=== PATIENT | male | born 1945 | race Caucasian/White ===

== ENCOUNTER 2019-05-07 10:36 | Inpatient (IN) | payer MEDICARE, OTHER ==
[2019-05-07] VITALS (15 sets, daily range): BP systolic 98–151; BP diastolic 32–90
[~2019-05-07] VITALS: Ht 175.3 cm; Wt 81.6 kg
--- NOTE | 2019-05-07 10:36 | NUR ---
"BIB RA 88 FROM HOME, C/O ABDOMINAL PAIN/NAUSEA AND VOMITING X 3 DAYS" pt aaox4, -sob, nad noted, vss ,pending md fuentes
[2019-05-07] MEDS ORDERED: DILTIAZEM HCL 25 MG IV ONE (11:20)
[2019-05-07 11:22] LABS: BASOPHILS # (AUTO) 0.1 /CMM (0.0-0.2); BASOPHILS % (AUTO) 0.8 % (0.0-2.0); EOSINOPHILS % (AUTO) 1.2 % (0.0-6.0); HEMATOCRIT 45 % (39-51); HEMOGLOBIN 14.4 g/dL (13.5-17.5); LYMPHOCYTES # (AUTO) 2.2 /CMM (0.8-4.8); LYMPHOCYTES % (AUTO) 22.5 % (20.0-44.0); MEAN CORPUSCULAR HGB CONC 32 g/dl (31.0-36.0); MEAN CORPUSCULAR VOLUME 82 fL (80-96); MONOCYTES # (AUTO) 0.8 /CMM (0.1-1.30); MONOCYTES % (AUTO) 7.9 % (2.0-12.0); NEUTROPHILS # (AUTO) 6.6 /CMM (1.8-8.9); NEUTROPHILS % (AUTO) 67.6 % (43.0-81.0); PLATELET COUNT (AUTO) 286 /CMM (150-450); RED BLOOD CELL COUNT(AUTO) 5.45 MIL/uL (4.5-6.0); WHITE BLOOD COUNT (AUTO) 9.8 K/uL (4.3-11.0)
--- NOTE | 2019-05-07 11:27 | NUR ---
asked for icu bed
--- NOTE | 2019-05-07 11:29 | NUR ---
[facility] bed 253
--- NOTE | 2019-05-07 11:29 | NUR ---
move sheet turned in
[2019-05-07] MEDS ORDERED: DILTIAZEM HCL IV 125 MG in IV D5W 100 ML IV ONE (11:30)
[2019-05-07] MEDS ORDERED: IV NS 0.9% 500 ML BAG IV ONE (11:30)
[2019-05-07] MEDS ORDERED: DILTIAZEM HCL 25 MG IV IVP ONE (11:30)
[2019-05-07 11:37] LABS: ALBUMIN 3.3 g/dL (3.4-5.0); BILIRUBIN,DIRECT 0.1 mg/dL (0.0-0.2); BILIRUBIN,TOTAL 0.2 mg/dL (0.2-1.0); CALCIUM, SERUM 9.4 mg/dL (8.5-10.1); CREATININE 1.2 mg/dL (0.6-1.3); TOTAL PROTEIN, SERUM 7.6 g/dL (6.4-8.2)
[2019-05-07] MEDS ORDERED: TAMS-12 PO (11:42)
[2019-05-07] MEDS ORDERED: CYAN100096 PO (11:42)
[2019-05-07] MEDS ORDERED: CLON0.5T4 PO (11:42)
[2019-05-07] MEDS ORDERED: PRAV40TA3 PO (11:42)
[2019-05-07] MEDS ORDERED: MELA3TAB63 PO (11:42)
[2019-05-07] MEDS ORDERED: DOCU-141 PO (11:42)
[2019-05-07] MEDS ORDERED: MIRT30TA7 PO (11:42)
[2019-05-07] MEDS ORDERED: BENA40TA8 PO (11:42)
[2019-05-07] MEDS ORDERED: FINA5TAB11 PO (11:42)
[2019-05-07] MEDS ORDERED: LEVO50TA8 PO (11:42)
[2019-05-07] MEDS ORDERED: FOLI0.8T PO (11:42)
[2019-05-07] MEDS ORDERED: TRAZ-182 PO (11:42)
[2019-05-07] MEDS ORDERED: ASPI1CPM PO (11:42)
[2019-05-07] MEDS ORDERED: SENN-168 PO (11:42)
[2019-05-07] MEDS ORDERED: FESO4TAB PO (11:42)
[2019-05-07] MEDS ORDERED: LINA145C PO (11:42)
[2019-05-07] MEDS ORDERED: IV NS 0.9% 250 ML IV ONE ×2 (11:44→11:52)
[2019-05-07] MEDS ORDERED: IOHEXOL-300 100 ML VIAL IV ONE (11:44)
[2019-05-07] MEDS ORDERED: CT SWABBABLE VALVE TRANS SET 1 EA INFUS.SET MC ONE ×2 (11:45→11:52)
--- NOTE | 2019-05-07 11:46 | NUR ---
called cardio its lavern
--- NOTE | 2019-05-07 11:49 | NUR ---
CALLED MICHAEL JACQUES [phone]
[2019-05-07] MEDS ORDERED: IOHEXOL-350 100 ML VIAL IV ONE ×2 (11:52→11:56)
--- NOTE | 2019-05-07 11:57 | NUR ---
MICHAEL SAID ITLL BE ZHOU
[2019-05-07] MEDS ORDERED: METOPROLOL TARTRATE INJ 5 MG/5 ML AMPUL ONE (12:27)
[2019-05-07] MEDS ORDERED: METOPROLOL TARTRATE INJ 5 MG/5 ML AMPUL IVP PRN (12:30)
[2019-05-07] MEDS ORDERED: ENOXAPARIN SODIUM 80 MG/0.8 ML DISP.SYRIN SQ ONE (13:30)
[2019-05-07] MEDS ORDERED: ASPIRIN 81 MG TAB.CHEW PO ONE (13:30)
[2019-05-07] MEDS ORDERED: ASPIRIN 81 MG TAB.CHEW ONE (13:36)
[2019-05-07] MEDS ORDERED: ENOXAPARIN SODIUM 100 MG/ML DISP.SYRIN SQ ONE (13:36)
--- NOTE | 2019-05-07 14:02 | NUR ---
REPORT GIVEN TO PIETRO RN FOR MOISE PT WILL BE TRANSPORTED TO ICU ONCE ALL PAPERS ARE TURNED IN
--- NOTE | 2019-05-07 14:43 | NUR ---
TRANSPORTED TO ICU
--- NOTE | 2019-05-07 15:00 | NUR ---
ICU/RN INITIAL NOTES,AM RECEIVED PT FROM ER. REPORT RECEIVED ASHA PIZARRO RN. PT TRANSFERRED TO BED 253 VIA GURNEY. PT ALERT, AWAKE, FOLLOWS COMMANDS. ON ROOM AIR, NO DISTRESS NOTED. PT DENIES CHEST PAIN. A FIB ON TELE. PT CONTINENT, URINAL AT BEDSIDE. SKIN INTACT. PIV PATENT AND INTACT, NO S/S OF INFECTION OR INFILTRATION NOTED. ALL NEEDS WILL BE ATTENDED TO, SAFETY MEASURES TAKEN, BED IN LOW POSITION, SIDE RAILS UP, CALL LIGHT WITHIN REACH. WILL CONTINUE CARE.
[2019-05-07 16:29] LABS: THYROID STIMULATING HORMONE 1.057 uIU/mL (0.358-3.74)
[2019-05-07] MEDS ORDERED: MAG HYDROX/AL HYDROX/SIMETH 30 ML UDC PO PRN (16:30)
[2019-05-07] MEDS ORDERED: MAGNESIUM HYDROXIDE 30 ML UDC PO PRN (16:30)
[2019-05-07] MEDS ORDERED: Z GUARD REMEDY 2 OZ OINT TP PRN (16:30)
[2019-05-07] MEDS ORDERED: AGGRENOX(ASA/DIPYRIDAMOLE) 1 CAP CPMP.12HR PO SCH (16:30)
[2019-05-07] MEDS ORDERED: ACETAMINOPHEN 325 MG TABLET PO PRN (16:30)
[2019-05-07] MEDS ORDERED: MORPHINE SULFATE INJ 2 MG/ML DISP.SYRIN IV PRN (16:30)
[2019-05-07] MEDS ORDERED: ONDANSETRON HCL/PF 4 MG/2 ML VIAL IVP PRN (16:30)
[2019-05-07] MEDS ORDERED: HYDROCODONE/APAP 5/325MG 1 EACH TABLET PO PRN (16:30)
[2019-05-07] MEDS ORDERED: METOPROLOL SUCCINATE 25 MG TAB.SR.24H PO SCH (18:00)
[2019-05-07] MEDS: CYANOCOBALAMIN 500 MCG TABLET PO SCH (18:30)
[2019-05-07] MEDS: DOCUSATE SODIUM 100 MG CAPSULE PO SCH (18:30)
[2019-05-07] MEDS: TRAZODONE 50 MG TABLET PO PRN (18:31)
--- NOTE | 2019-05-07 18:58 | NUR ---
ICU/RN: ENDING NOTES,AM BESIDE REPORT WILL BE ENDORSED TO NIGHT NURSE FOR MOISE. PT ALERT, AWAKE, FOLLOWS COMMANDS. UNCONTROLLED A.FIB ON TELE. VSS, ON ROOM AIR, NO DISTRESS NOTED. URINAL AT BEDSIDE. PT RESTING COMFORTABLY AT BEDSIDE. ALL NEEDS WILL BE ATTENDED TO, SAFETY MEASURES TAKEN, BED IN LOW POSITION, SIDE RAILS UP, CALL LIGHT WITHIN REACH.
--- NOTE | 2019-05-07 19:25 | NUR ---
RN OPENING NOTES RECEIVED PATIENT IN BED, AWAKE, A/OX4. ABLE TO MAKE NEEDS KNOWN. ON ROOM AIR, BREATHING UNLABORED. NO S/S OF RESP DISTRESS NOTED. PT DENIES ANY PAIN AT THE MOMENT. UNCONTROLLED AFIB ON THE MONITOR HR 100'S. IV SITES LEFT AC 20G AND RIGHT FA 20G, BOTH SITES FLUSHING AND PATENT, BOTH CLEAN, DRY, AND INTACT. URINAL AT BEDSIDE. SAFETY MEASURES IN PLACE; CALL LIGHT WITHIN REACH, SIDE RAILS UP X2, BED LOCKED AND IN LOWEST POSITION. WILL CONTINUE TO MONITOR PATIENT CLOSELY.
--- NOTE | 2019-05-07 20:45 | NUR ---
RN NOTES PATIENT STATED HE WANTS TO SMOKE. DISCUSSED WITH PT RISKS AND BENEFITS AND AGREED TO DO NICOTINE PATCH FOR TONIGHT. HOSPITALIST MADE AWARE AND ORDERED NICOTINE PATCH 21MG. WILL ATTEND TO ORDERS.
--- NOTE | 2019-05-07 21:11 | NUR ---
RN NOTES PATIENT HAS BELONGINGS, INCLUDING WALLET, HOWEVER REFUSING FOR RN TO COUNT DESPITE EXPLANATION OF RISKS AND BENEFITS. WILL CONT TO MONITOR PT.
[2019-05-07] MEDS: NICOTINE PATCH (21MG) 21 MG PATCH.TD24 TD SCH (22:10)
[2019-05-07] MEDS: SENNOSIDES 8.6 MG TABLET PO SCH (22:10)
[2019-05-07] MEDS: ENOXAPARIN SODIUM 80 MG/0.8 ML DISP.SYRIN SQ SCH (22:11)
[2019-05-07] MEDS: clonazePAM 0.5 MG TABLET PO PRN (22:34)
[2019-05-08] VITALS (20 sets, daily range): BP systolic 90–135; BP diastolic 30–90
[2019-05-08 04:38] LABS: BASOPHILS # (AUTO) 0.1 /CMM (0.0-0.2); BASOPHILS % (AUTO) 0.8 % (0.0-2.0); HEMATOCRIT 42 % (39-51); HEMOGLOBIN 13.4 g/dL (13.5-17.5); LYMPHOCYTES # (AUTO) 1.9 /CMM (0.8-4.8); LYMPHOCYTES % (AUTO) 27.4 % (20.0-44.0); MEAN CORPUSCULAR HGB CONC 32 g/dl (31.0-36.0); MEAN CORPUSCULAR VOLUME 82 fL (80-96); MONOCYTES # (AUTO) 0.6 /CMM (0.1-1.30); MONOCYTES % (AUTO) 8.8 % (2.0-12.0); NEUTROPHILS # (AUTO) 4.3 /CMM (1.8-8.9); PLATELET COUNT (AUTO) 267 /CMM (150-450); RED BLOOD CELL COUNT(AUTO) 5.09 MIL/uL (4.5-6.0); WHITE BLOOD COUNT (AUTO) 6.9 K/uL (4.3-11.0)
[2019-05-08 04:59] LABS: CALCIUM, SERUM 8.7 mg/dL (8.5-10.1); CREATININE 1.1 mg/dL (0.6-1.3); MAGNESIUM 2.2 mg/dL (1.8-2.4); PHOSPHORUS 3.4 mg/dL (2.5-4.9); POTASSIUM 4.1 mmol/L (3.5-5.1)
--- NOTE | 2019-05-08 06:48 | NUR ---
RN CLOSING NOTES PATIENT IN BED, AWAKE, WATCHING THE TELEVISION, A/OX4. ON ROOM AIR, BREATHING UNLABORED. NO S/S OF RESP DISTRESS NOTED. SINUS RHYTHM ON THE MONITOR WITH HR 70'S. IV SITES LEFT AC 20G AND RIGHT FA 20G, BOTH SITES FLUSHING AND PATENT, BOTH CLEAN, DRY, AND INTACT. URINAL AT BEDSIDE. SAFETY MEASURES MAINTAINED; CALL LIGHT WITHIN REACH, SIDE RAILS UP X2, BED LOCKED AND IN LOWEST POSITION. ALL NEEDS ANTICIPATED AND MET. ALL MD ORDERS ATTENDED. WILL CONTINUE TO MONITOR PATIENT CLOSELY. WILL ENDORSE TO AM NURSE FOR MOISE.
[2019-05-08] MEDS ORDERED: SOTALOL HCL 80 MG TABLET PO SCH (07:00)
--- NOTE | 2019-05-08 07:15 | NUR ---
LUMBER BUYER OPENING NOTES RECEIVED REPORT FROM PM NURSE.PATIENT IN BED. AWAKE.A/OX4. ABLE TO MAKE NEEDS KNOWN. ON ROOM AIR, BREATHING UNLABORED. NO S/S OF RESP DISTRESS NOTED. PT DENIES ANY PAIN AT THE MOMENT. SINUS RHYTHM ON THE MONITOR HR 80'S. IV SITES LEFT AC 20G AND RIGHT FA 20G, BOTH SITES FLUSHING AND PATENT, BOTH CLEAN, DRY, AND INTACT. URINAL AT BEDSIDE. SAFETY MEASURES IN PLACE. CALL LIGHT WITHIN REACH, SIDE RAILS UP X3. BED LOCKED AND IN LOWEST POSITION. WILL CONTINUE TO MONITOR .
[2019-05-08] MEDS: LEVOTHYROXINE SODIUM 50 MCG TABLET PO SCH (07:46)
--- NOTE | 2019-05-08 08:30 | NUR ---
CARTON STENCILER NOTE SEEN BY UPDATED ABOUT PATIENT CONDITION.PATIENT REQUESTING TO GO OUT FOR SMOKING.MADE AWARE TAT WILL TRANSFER DOWN TO ANOTHER UNIT WHERE HE CAN GO FOR SMOKING.HE SAID HE GET ANXIOUS IF DONT GO OUT AND SMOKE.NICOTINE PATCH DONT WORK.GOT NEW ORDER FOR ATIVAN FROM .WILL CONTINUE TO MONITOR.
[2019-05-08] MEDS: DOCUSATE SODIUM 100 MG CAPSULE PO SCH ×2 (08:36→16:07)
[2019-05-08] MEDS: TAMSULOSIN 0.4 MG CAP.SR.24H PO SCH (08:36)
[2019-05-08] MEDS: FINASTERIDE (5 MG) 5 MG TABLET PO SCH (08:36)
[2019-05-08] MEDS: ATORVASTATIN 40 MG TABLET PO SCH (08:36)
[2019-05-08] MEDS: BENAZEPRIL HCL 20 MG TABLET PO SCH (08:37)
[2019-05-08] MEDS: FOLIC ACID 1 MG TABLET PO SCH (08:37)
[2019-05-08] MEDS: NICOTINE PATCH (21MG) 21 MG PATCH.TD24 TD SCH (08:37)
[2019-05-08] MEDS: ASPIRIN 325 MG TABLET PO SCH (08:37)
[2019-05-08] MEDS: ENOXAPARIN SODIUM 80 MG/0.8 ML DISP.SYRIN SQ SCH ×2 (08:48→21:22)
[2019-05-08] MEDS: LORAZEPAM INJ 2 MG/ML VIAL IV PRN (08:53)
[2019-05-08] MEDS ORDERED: Medication Not On Formulary EA (Fesoterodine Fumarate (Toviaz) 4 MG) PO SCH (09:00)
[2019-05-08] MEDS: SOTALOL HCL 80 MG TABLET PO SCH ×2 (09:29→21:21)
--- NOTE | 2019-05-08 10:15 | NUR ---
INSURANCE COUNSELOR NOTE PATENT TRANSFERRED TO TELE FLOOR IN ROOM 323 WITH ACLS PROTOCOL.PATIENT AXOX4.NO SOB NO DISTRESS NOTED.VITAL SIGNS STABLE.REPORT GIVEN TO NURSE KEERTHI.TRANSFERRED ALL BELONGINGS.IV LINES ARE INTACT AND PATENT.
--- NOTE | 2019-05-08 10:20 | NUR ---
FEEDER ASSOCIATESURFACE MOUNT TECHNOLOGY OPERATOR OPEN NOTE PATIENT ARRIVED BY BED. PATIENT IN NO ACUTE DISTRESS. NO SOB NOTED. PATIENT BREATHING IS EVEN AND UNLABORED. PATIENT ON CARDIAC MONITORING, SINUS RHYTHM HR 74. PATIENT REFUSED TO HAVE SKIN ASSESSED. PATIENT STATES " I DONT WANT TO BE BOTHERED WITH THAT". INFORMED AND EDUCATED RISKS VS BENEFITS 3X AND PATIENT CONTINUED TO REFUSE. PATIENT NEEDS AND CONCERNS ADDRESSED. MD AWARE OF PATIENT TRANSFER. PATIENT BED IS LOCKED AND IN LOWEST POSITION. CALL LIGHT WITHIN REACH. WILL CONTINUE TO MONITOR.
[2019-05-08] MEDS: CYANOCOBALAMIN 500 MCG TABLET PO SCH (10:42)
--- NOTE | 2019-05-08 11:30 | NUR ---
AIRPORT DRIVER NOTE PER RADIOLOGY, NO RADIOLOGIST OR PATHOLOGIST AVAILABLE FOR US NEEDLE GUIDED BIOPSY UNTIL FRIDAY. INFORMED DR. RANDOLPH AND MADE AWARE.
[2019-05-08] MEDS: TOLTERODINE 2 MG TABLET PO SCH ×2 (13:34→21:21)
--- NOTE | 2019-05-08 18:32 | NUR ---
MELTER SUPERVISOR OXYGEN FURNACE CLOSING NOTE PATIENT IN BED RESTING COMFORTABLY. PATIENT IN NO ACUTE DISTRESS. NO SOB NOTED. PATIENT BREATHING IS EVEN AND UNLABORED. PATIENT ON CARDIAC MONITORING SINUS RHYTHM HR 87. PATIENT NEEDS AND CONCERNS ADDRESSED. PATIENT ENCOURAGED TO TURN AND REPOSITION. EXTREMITIES OFFLOADED ON PILLOWS. PATIENT CONTINUED TO REFUSE SKIN ASSESSMENT. PATIENT KEPT CLEAN, DRY, AND COMFORTABLE THROUGHOUT SHIFT. PATIENT BED IS LOCKED AND IN LOWEST POSITION. CALL LIGHT WITHIN REACH. WILL ENDORSE CARE TO PM SHIFT FOR MOISE.
--- NOTE | 2019-05-08 20:00 | NUR ---
LOFT RIGGER NOTES RECEIVED PATIENT ASLEEP IN BED WITH NO DISTRESS NOTE. CALL LIGHT WITHIN REACH. PERIPHERAL LINES INTACT AND PATENT. BED IN LOW LOCK SETTING WITH BED ALARM ON AND FUNCTIONING PROPERLY. ALL BELONGINGS KEPT NEAR BEDSIDE. WILL CONTINUE TO MONITOR.
[2019-05-08] MEDS: SENNOSIDES 8.6 MG TABLET PO SCH (21:21)
[2019-05-09] MEDS: clonazePAM 0.5 MG TABLET PO PRN (01:09)
[2019-05-09] MEDS: TRAZODONE 50 MG TABLET PO PRN (02:17)
[2019-05-09 04:00] VITALS: BP 98/46
[2019-05-09 06:26] LABS: BASOPHILS % (AUTO) 0.5 % (0.0-2.0); EOSINOPHILS % (AUTO) 2.6 % (0.0-6.0); HEMATOCRIT 39 % (39-51); HEMOGLOBIN 12.9 g/dL (13.5-17.5); LYMPHOCYTES # (AUTO) 1.8 /CMM (0.8-4.8); LYMPHOCYTES % (AUTO) 32.2 % (20.0-44.0); MEAN CORPUSCULAR HGB CONC 33 g/dl (31.0-36.0); MEAN CORPUSCULAR VOLUME 81 fL (80-96); MONOCYTES # (AUTO) 0.5 /CMM (0.1-1.30); MONOCYTES % (AUTO) 9.4 % (2.0-12.0); NEUTROPHILS # (AUTO) 3.1 /CMM (1.8-8.9); NEUTROPHILS % (AUTO) 55.3 % (43.0-81.0); PLATELET COUNT (AUTO) 234 /CMM (150-450); RED BLOOD CELL COUNT(AUTO) 4.88 MIL/uL (4.5-6.0); WHITE BLOOD COUNT (AUTO) 5.6 K/uL (4.3-11.0)
[2019-05-09 06:43] LABS: ALBUMIN 2.7 g/dL (3.4-5.0); BILIRUBIN,TOTAL 0.3 mg/dL (0.2-1.0); CALCIUM, SERUM 8.5 mg/dL (8.5-10.1); CREATININE 0.9 mg/dL (0.6-1.3); MAGNESIUM 2.2 mg/dL (1.8-2.4); PHOSPHORUS 3.4 mg/dL (2.5-4.9); POTASSIUM 3.8 mmol/L (3.5-5.1); TOTAL PROTEIN, SERUM 6.3 g/dL (6.4-8.2)
--- NOTE | 2019-05-09 06:52 | NUR ---
NAVAL AIRCREWMAN AVIONICS NOTES PATIENT ASLEEP IN BED WITH NO DISTRESS NOTED. CALL LIGHT WITHIN REACH. NO C/O PAIN OR DISCOMFORT. ALL DUE MEDS GIVEN ORDERED WITH NO ASE NOTED. PERIPHERAL LINES INTACT AND PATENT. ALL BELONGINGS KEPT NEAR BEDSIDE. BED IN LOW LOCK SETTING. WILL ENDORSE TO ONCOMING SHIFT.
--- NOTE | 2019-05-09 07:27 | NUR ---
CREAM TESTER OPENING NOTES PATIENT RECEIVED IN BED AWAKE IN NO ACUTE SIGNS OF DISTRESS. A/O X4. ABLE TO MAKE NEEDS KNOWN, NO C/O PAIN OR ANY DISCOMFORTS AT THIS TIME. ON ROOM AIR, BREATHING EVEN AND UNLABORED. ON TELEMONITORING WITH CURRENT READING OF SB AND HR OF 57, NO C/O CARDIAC DISTRESS VOICED AT THIS TIME. PIV'S ON LAC G#20 AND RAC G#20 BOTH INTACT AND PATENT. SAFETY MEASURES IN PLACE: BED IN LOW LOCKED POSITION WITH SIDE RAILS UP X2. CALL LIGHT WITHIN REACH. WILL CONTINUE TO MONITOR PT ACCORDINGLY.
[2019-05-09] MEDS: LEVOTHYROXINE SODIUM 50 MCG TABLET PO SCH (07:44)
[2019-05-09 08:00] VITALS: BP 144/76
[2019-05-09] MEDS: ASPIRIN 325 MG TABLET PO SCH (08:24)
[2019-05-09] MEDS: FOLIC ACID 1 MG TABLET PO SCH (08:25)
[2019-05-09] MEDS: ATORVASTATIN 40 MG TABLET PO SCH (08:25)
[2019-05-09] MEDS: SOTALOL HCL 80 MG TABLET PO SCH ×2 (08:26→21:29)
[2019-05-09] MEDS: TAMSULOSIN 0.4 MG CAP.SR.24H PO SCH (08:26)
[2019-05-09] MEDS: DOCUSATE SODIUM 100 MG CAPSULE PO SCH ×2 (08:27→16:35)
[2019-05-09] MEDS: CYANOCOBALAMIN 500 MCG TABLET PO SCH (08:29)
[2019-05-09] MEDS: FINASTERIDE (5 MG) 5 MG TABLET PO SCH (08:29)
[2019-05-09] MEDS: BENAZEPRIL HCL 20 MG TABLET PO SCH (08:29)
[2019-05-09] MEDS: NICOTINE PATCH (21MG) 21 MG PATCH.TD24 TD SCH (08:30)
[2019-05-09] MEDS: ENOXAPARIN SODIUM 80 MG/0.8 ML DISP.SYRIN SQ SCH ×2 (08:31→21:45)
[2019-05-09] MEDS: TOLTERODINE 2 MG TABLET PO SCH ×2 (08:34→21:29)
--- NOTE | 2019-05-09 09:34 | NUR ---
RN NOTES PT ACCOMPANIED AND WHEELED OUTSIDE BY BULK TANK CAR UNLOADER TO SMOKE.
--- NOTE | 2019-05-09 09:58 | NUR ---
RN NOTES PT SEEN BY DR ZHOU. TELEMONITORING DISCONTINUED, NO C/O CARDIAC DISTRESS VOICED. WILL CONTINUE TO MONITOR
--- NOTE | 2019-05-09 13:38 | NUR ---
RN NOTES CALLED RADIOLOGY REGARDING SCHEDULED CTA PROCEDURE FOR THE PATIENT. SPOKE TO CHEMO. SHE SAID THEY ARE STILL TRYING TO FIGURE OUT THE TIME OF THE PROCEDURE AND THAT IT WILL STILL TAKE PLACE TODAY. WILL UPDATE US SOON THE TIME IS FIGURED OUT.
[2019-05-09 16:00] VITALS: BP 145/77
[2019-05-09] MEDS: LORAZEPAM INJ 2 MG/ML VIAL IV PRN (16:36)
--- NOTE | 2019-05-09 17:10 | NUR ---
RN NOTES CALLED RADIOLOGY TO FOLLOW UP REGARDING SCHEDULED CTA PROCEDURE FOR THE PATIENT. SPOKE TO MALDONADO. HE SAID THEY DO NOT HAVE A NURSE TO BE ABLE TO PERFORM THE PROCEDURE AT THIS MOMENT. THEY ARE WAITING TO SEE IF THEY FIND A NURSE. MALDONADO SAID THEY WILL UPDATE US SOON THEY HAVE ANY NEWS. WILL FOLLOW UP.
--- NOTE | 2019-05-09 18:42 | NUR ---
MS RN OPENING NOTES PATIENT AWAKE AND TALKING WITH SOMEBODY IN HIS CELLPHONE AT THIS TIME. A/O X4. ABLE TO MAKE NEEDS KNOWN. REMAINS WITH LEFT SIDE WEAKNESS. ON ROOM AIR, TOLERATING WELL WITH NO SOB NOTED THROUGHOUT THE DAY. PIV'S ON LAC G#20 AND RAC G#20 BOTH INTACT, PATENT AND FLUSHES WELL. ALL NEEDS AND CARE ATTENDED WELL. SAFETY MEASURES KEPT IN PLACE: BED IN LOWEST LOCKED POSITION WITH SIDE RAILS UP X2. CALL LIGHT AND BEDSIDE TABLE KEPT WITHIN EASY REACH 0F PT. WILL ENDORSE TO BLINDSTITCH LAPEL PADDER NURSE FOR MOISE.
--- NOTE | 2019-05-09 19:35 | NUR ---
MS RN OPENING NOTES RECEIVED PATIENT IN BED. A/O X4. TOLERATING ROOM AIR. RESPIRATIONS ARE EVEN AND UNLABORED. NO S/S SOB NOTED. DENIES PAIN AT THIS TIME. IN NO APPARENT DISTRESS. IV ACCESS IN LAC #20 PATENT AND SALINE LOCKED, AND RAC #20 ALSO PATENT AND SALINE LOCKED. BED IA LOW AND LOCKED, HOB IN SEMI FOWLERS, SIDE RIALS UP X2, BED ALARM ON. CALL LIGHT WITHIN REACH. WILL CONTINUE TO MONITOR.
--- NOTE | 2019-05-09 19:48 | NUR ---
MS RN NOTE PATIENT REFUSED SKIN ASSESSMENT ON ADMISSION. HE IS ALLOWING TO TAKE PICS NOW. PICTURES WILL BE PLACED IN CHART.
[2019-05-09 20:00] VITALS: BP 124/63
[2019-05-09] MEDS: SENNOSIDES 8.6 MG TABLET PO SCH (21:29)
--- NOTE | 2019-05-09 21:29 | NUR ---
MS RN NOTE ADMINISTERED PRN MILK F MAGNESIA 30 ML PER PATIENT REQUEST. WILL CONTINUE TO MONITOR.
--- NOTE | 2019-05-09 21:46 | NUR ---
MS RN NOTE NOTIFIED BACK SEWER MD THAT PATIENT IS SCHEDULED TO HAVE A US NEEDLE GUIDED BIOPSY FOR THYROID MASS TOMORROW AND HAS LOVENOX 80MG SCHEDULED. SAID OK TO GIVE LOVENOX. READ BACK, NOTED AND CARRIED OUT.
--- NOTE | 2019-05-10 06:15 | NUR ---
MS RN CLOSING NOTES PATIENT IN BED. A/O X4. REMAINS TOLERATING ROOM AIR. RESPIRATIONS ARE EVEN AND UNLABORED. NO EPISODES SOB NOTED. NO C/O PAIN. NO DISTRESS NOTED. IV ACCESS MAINTAINED IN LAC #20 PATENT AND SALINE LOCKED, AND RAC #20 ALSO PATENT AND SALINE LOCKED. BED REMAINS LOW AND LOCKED, HOB IN SEMI FOWLERS, SIDE RIALS UP X2, BED ALARM ON. CALL LIGHT WITHIN REACH. WILL ENDORSE TO NEXT SHIFT.
--- NOTE | 2019-05-10 07:38 | NUR ---
MS RN OPENING NOTES RECEIVED PATIENT IN BED RESTING COMFORTABLY IN MODERATE HIGH BACKREST. A/O X4. NO SIGNS OF DISTRESS NOTED AT THIS TIME. DENIES PAIN AT THIS TIME. IV ACCESS IN LAC #20 PATENT AND SALINE LOCKED, AND RAC #20 ALSO PATENT AND SALINE LOCKED. SAFETY MEASURES IN PLACE, BED IA LOW AND LOCKED, HOB IN SEMI FOWLERS, SIDE RIALS UP X2. CALL LIGHT WITHIN REACH. WILL CONTINUE TO MONITOR.
[2019-05-10 08:00] VITALS: BP 116/66
[2019-05-10] MEDS: ASPIRIN 325 MG TABLET PO SCH (08:52)
[2019-05-10] MEDS: NICOTINE PATCH (21MG) 21 MG PATCH.TD24 TD SCH (08:52)
[2019-05-10] MEDS: ATORVASTATIN 40 MG TABLET PO SCH (08:52)
[2019-05-10] MEDS: DOCUSATE SODIUM 100 MG CAPSULE PO SCH ×2 (08:53→16:46)
[2019-05-10] MEDS: LEVOTHYROXINE SODIUM 50 MCG TABLET PO SCH (08:53)
[2019-05-10] MEDS: FINASTERIDE (5 MG) 5 MG TABLET PO SCH (08:53)
[2019-05-10] MEDS: FOLIC ACID 1 MG TABLET PO SCH (08:53)
[2019-05-10] MEDS: CYANOCOBALAMIN 500 MCG TABLET PO SCH (08:53)
[2019-05-10] MEDS: SOTALOL HCL 80 MG TABLET PO SCH ×2 (08:53→21:08)
[2019-05-10] MEDS: BENAZEPRIL HCL 20 MG TABLET PO SCH (08:54)
[2019-05-10] MEDS: TAMSULOSIN 0.4 MG CAP.SR.24H PO SCH (08:54)
[2019-05-10] MEDS: TOLTERODINE 2 MG TABLET PO SCH ×2 (08:55→21:00)
[2019-05-10] MEDS: ENOXAPARIN SODIUM 80 MG/0.8 ML DISP.SYRIN SQ SCH ×2 (09:00→21:03)
--- NOTE | 2019-05-10 09:10 | NUR ---
RN NOTES HOLD ENOXAPARIN DUE TO BIOPSY.
[2019-05-10 09:47] LABS: BASOPHILS % (AUTO) 0.4 % (0.0-2.0); EOSINOPHILS % (AUTO) 2.1 % (0.0-6.0); HEMATOCRIT 41 % (39-51); HEMOGLOBIN 13.4 g/dL (13.5-17.5); LYMPHOCYTES # (AUTO) 1.7 /CMM (0.8-4.8); LYMPHOCYTES % (AUTO) 28.5 % (20.0-44.0); MEAN CORPUSCULAR HGB CONC 33 g/dl (31.0-36.0); MEAN CORPUSCULAR VOLUME 81 fL (80-96); MONOCYTES # (AUTO) 0.4 /CMM (0.1-1.30); MONOCYTES % (AUTO) 5.9 % (2.0-12.0); NEUTROPHILS # (AUTO) 3.9 /CMM (1.8-8.9); NEUTROPHILS % (AUTO) 63.1 % (43.0-81.0); PLATELET COUNT (AUTO) 249 /CMM (150-450); RED BLOOD CELL COUNT(AUTO) 5.07 MIL/uL (4.5-6.0); WHITE BLOOD COUNT (AUTO) 6.1 K/uL (4.3-11.0)
[2019-05-10 10:00] LABS: CALCIUM, SERUM 8.3 mg/dL (8.5-10.1); CREATININE 1.1 mg/dL (0.6-1.3); MAGNESIUM 2.4 mg/dL (1.8-2.4); POTASSIUM 3.7 mmol/L (3.5-5.1)
[2019-05-10 10:08] LABS: *SPE A/G RATIO 0.8 (0.7-1.7); *SPE ALBUMIN 2.8 g/dL (2.9-4.4); *SPE ALPHA-1-GLOBULIN 0.3 g/dL (0.0-0.4); *SPE ALPHA-2-GLOBULIN 1.1 g/dL (0.4-1.0); *SPE BETA GLOBULIN 0.9 g/dL (0.7-1.3); *SPE GLOBULIN, TOTAL 3.3 g/dL (2.2-3.9); *SPE M-SPIKE Not Observed g/dL (Not Observed)
[2019-05-10] MEDS ORDERED: NITROGLYCERIN 0.4 MG/TAB BOTTLE SL ONE (12:00)
[2019-05-10] MEDS ORDERED: METOPROLOL TARTRATE INJ 5 MG/5 ML AMPUL IVP ONE (12:00)
[2019-05-10] MEDS ORDERED: IV NS 0.9% 500 ML IV PRN (12:00)
--- NOTE | 2019-05-10 12:45 | NUR ---
RN NOTES PATIENT LEFT UNIT WITH HOSPITAL STAFF VIA WHEELCHAIR FOR BIOPSY. PATIENT IN NO SIGNS OF ANY DISTRESS. V/S WNL.
[2019-05-10] MEDS ORDERED: IV NS 0.9% 250 ML IV ONE (14:09)
[2019-05-10] MEDS ORDERED: CT SWABBABLE VALVE TRANS SET 1 EA INFUS.SET MC ONE (14:09)
[2019-05-10] MEDS ORDERED: IOHEXOL-350 100 ML VIAL IV ONE (14:09)
[2019-05-10] MEDS ORDERED: NITROGLYCERIN 0.4 MG/TAB BOTTLE ONE (14:57)
--- NOTE | 2019-05-10 15:17 | NUR ---
RN NOTES PATIENT CAME BACK FROM PROCEDURES VIA Lynette LIMA/Gerard ALAS. WILL CONTINUE TO MONITOR.
[2019-05-10 16:00] VITALS: BP 140/71
--- NOTE | 2019-05-10 18:35 | NUR ---
MS RN CLOSING NOTES PATIENT IN BED RESTING COMFORTABLY IN MODERATE HIGH BACKREST. A/O X4. NO SIGNS OF DISTRESS NOTED THROUGHOUT THE SHIFT. IV ACCESS IN LAC #20. PATENT AND INTACT. SAFETY MEASURES IN PLACE, BED IN LOW AND LOCKED, HOB IN SEMI FOWLERS, SIDE RIALS UP X2. CALL LIGHT WITHIN REACH. WILL ENDORSE TO TEST ENGINEER NURSE FOR MOISE.
--- NOTE | 2019-05-10 19:30 | NUR ---
MS RN OPENING NOTES RECEIVED PATIENT IN BED. A/O X4. TOLERATING ROOM AIR. RESPIRATIONS ARE EVEN AND UNLABORED. NO S/S SOB NOTED. DENIES PAIN AT THIS TIME. IN NO APPARENT DISTRESS. IV ACCESS IN LAC #20 PATENT AND SALINE LOCKED. BED IA LOW AND LOCKED, HOB IN SEMI FOWLERS, SIDE RIALS UP X2, BED ALARM ON. CALL LIGHT WITHIN REACH. WILL CONTINUE TO MONITOR.
[2019-05-10 20:00] VITALS: BP 132/67
[2019-05-10 20:28] VITALS: BP 132/67
--- NOTE | 2019-05-10 20:50 | NUR ---
MS RN NOTE CALLED PHARMACY TO INFORM THEM THERE IS NO DETROL 2MG ON THE FLOOR IN [facility] CELL OR PATIENT CASSETTE. PHARMACY INFORMED ME TO WRITE MED NOT AVAILABLE D/T RECEIVING SHIPMENT TOMORROW, THEREFORE PATIENT WILL MISS TODAYS DOSE.
[2019-05-10] MEDS: SENNOSIDES 8.6 MG TABLET PO SCH (21:02)
[2019-05-10] MEDS: TRAZODONE 50 MG TABLET PO PRN (22:30)
--- NOTE | 2019-05-10 22:30 | NUR ---
MS RN NOTE ADMINISTERED PRN TRAZODONE 150 MG PER PATIENT REQUEST FOR SLEEP. WILL CONTINUE TO MONITOR.
[2019-05-10] MEDS: clonazePAM 0.5 MG TABLET PO PRN (23:48)
--- NOTE | 2019-05-10 23:51 | NUR ---
MS RN NOTE ADMINISTERED PRN KLONOPIN 0.5 MG PER PATIENT REQUEST FOR FEELING ANXIOUS. WILL CONTINUE TO MONITOR.
[2019-05-11 06:19] LABS: BASOPHILS % (AUTO) 0.5 % (0.0-2.0); EOSINOPHILS % (AUTO) 1.9 % (0.0-6.0); HEMATOCRIT 39 % (39-51); HEMOGLOBIN 12.7 g/dL (13.5-17.5); LYMPHOCYTES % (AUTO) 30.7 % (20.0-44.0); MEAN CORPUSCULAR HGB CONC 32 g/dl (31.0-36.0); MEAN CORPUSCULAR VOLUME 81 fL (80-96); MONOCYTES # (AUTO) 0.6 /CMM (0.1-1.30); MONOCYTES % (AUTO) 8.7 % (2.0-12.0); NEUTROPHILS # (AUTO) 3.8 /CMM (1.8-8.9); NEUTROPHILS % (AUTO) 58.2 % (43.0-81.0); PLATELET COUNT (AUTO) 231 /CMM (150-450); RED BLOOD CELL COUNT(AUTO) 4.84 MIL/uL (4.5-6.0); WHITE BLOOD COUNT (AUTO) 6.5 K/uL (4.3-11.0)
--- NOTE | 2019-05-11 07:17 | NUR ---
MS RN CLOSING NOTES PATIENT IN BED. A/O X4. REMAINS TOLERATING ROOM AIR. RESPIRATIONS ARE EVEN AND UNLABORED. NO EPISODES SOB NOTED. NO C/O PAIN. NO DISTRESS NOTED. IV ACCESS MAINTAINED IN LAC #20 PATENT AND SALINE LOCKED. BED REMAINS LOW AND LOCKED, HOB IN SEMI FOWLERS, SIDE RIALS UP X2, BED ALARM ON. CALL LIGHT WITHIN REACH. WILL ENDORSE TO NEXT SHIFT.
[2019-05-11 07:48] VITALS: BP 121/54
[2019-05-11 07:53] LABS: CALCIUM, SERUM 8.5 mg/dL (8.5-10.1); PHOSPHORUS 3.6 mg/dL (2.5-4.9); POTASSIUM 3.9 mmol/L (3.5-5.1)
[2019-05-11 08:00] VITALS: BP 121/59
[2019-05-11 08:04] LABS: MAGNESIUM 2.5 mg/dL (1.8-2.4)
[2019-05-11] MEDS: ENOXAPARIN SODIUM 80 MG/0.8 ML DISP.SYRIN SQ SCH ×2 (09:00→21:20)
[2019-05-11] MEDS: TOLTERODINE 2 MG TABLET PO SCH ×2 (09:00→21:00)
[2019-05-11] MEDS: NICOTINE PATCH (21MG) 21 MG PATCH.TD24 TD SCH (09:03)
[2019-05-11] MEDS: FOLIC ACID 1 MG TABLET PO SCH (09:04)
[2019-05-11] MEDS: FINASTERIDE (5 MG) 5 MG TABLET PO SCH (09:04)
[2019-05-11] MEDS: BENAZEPRIL HCL 20 MG TABLET PO SCH (09:04)
[2019-05-11] MEDS: ASPIRIN 325 MG TABLET PO SCH (09:04)
[2019-05-11] MEDS: SOTALOL HCL 80 MG TABLET PO SCH ×2 (09:04→21:00)
[2019-05-11] MEDS: ATORVASTATIN 40 MG TABLET PO SCH (09:05)
[2019-05-11] MEDS: CYANOCOBALAMIN 500 MCG TABLET PO SCH (09:05)
[2019-05-11] MEDS: DOCUSATE SODIUM 100 MG CAPSULE PO SCH ×2 (09:05→16:25)
[2019-05-11] MEDS: TAMSULOSIN 0.4 MG CAP.SR.24H PO SCH (09:05)
[2019-05-11] MEDS: LEVOTHYROXINE SODIUM 50 MCG TABLET PO SCH (09:06)
--- NOTE | 2019-05-11 10:45 | NUR ---
consent for procedure sighed by patient.
--- NOTE | 2019-05-11 13:15 | NUR ---
Dr Craft at bedside explaining procedure Addendum: 05/11/19 at 1517 by PHILIPPE CANALES RN risk and benefits explained: patient verbalized understanding
--- NOTE | 2019-05-11 13:30 | NUR ---
per adm patient back to tele (SR [id number]). OK to administer Lovenox today 2100. Hold Lovenox in am
[2019-05-11 16:00] VITALS: BP 163/83
--- NOTE | 2019-05-11 18:33 | NUR ---
PATIENT IN STABLE CONDITION RESTING IN BED.ON TELE MONITOR SR [id number].ALL NEEDS ATTENDED . ALL DUE MEDS GIVEN ORDERED.PATIENT NPO AFTER MIDNIGHT FOR RN FLIGHT TOMORROW AM. KEPT PATIENT CLEAN AND COMFORTABLE. BED IN LOW/LOCKED POSITION, SIDE RAILS UPX2, CALL LIGHT IN REACH. ENDORSED TO NIGHT RN FOR MOISE.
--- NOTE | 2019-05-11 19:34 | NUR ---
MS/RNOPENING NOTES RECEIVED PATIENT AWAKE, ALERT X3, WITH LEFT SIDED WEAKNESS, CAN USE RIGHT SIDE AND ABLE TO USE URINAL,RESPONSIVE AND ABLE TO VERBALZIE NEEDS. REPORTED AND WAS AWARE ABOUT A PROCEDURE FOR MIRTHA FOR CARDIAC CATHERIZATION AND THAT CONNSENT HAS BEEN SIGNED TO BE NPO AFTER MIDNIGHT AND PER MD TO START IV FLUIDS AT 2200 AND TO ASMINISTER LOVENOX AT NIGHT BUT TO HOLD IT IN AM. SKIN WARM TO TOUCH. PATIENT REPORTED WILL BE NEEDING MEICATION FOR SLEEP. , WILL MONITOR.BED LOCKED, CALL LIGHTS WITHIN REACH.
[2019-05-11 20:00] VITALS: BP 121/57
--- NOTE | 2019-05-11 20:18 | NUR ---
MS/RN NOTES PATIENT REQUEST TO BE TAKEN OUT FOR SMOKE MIRTHA AM, DISCUSSED AND EDUCATED ON DISEASE PROCESS AND EXPLAINED THE RISK PATIENT VERBALIZED.
[2019-05-11] MEDS: SENNOSIDES 8.6 MG TABLET PO SCH (21:17)
--- NOTE | 2019-05-11 21:28 | NUR ---
ms/rn notes pulse rate at 55
[2019-05-11] MEDS: clonazePAM 0.5 MG TABLET PO PRN (21:36)
[2019-05-11] MEDS ORDERED: IV NS 0.9% 1,000 ML IV PRN (22:00)
[2019-05-11] MEDS: TRAZODONE 50 MG TABLET PO PRN (22:32)
--- NOTE | 2019-05-11 22:40 | NUR ---
MS/RN NOTES PATIENT IN BED ,REQUESTED FOR MEDICATION FOR SLEEP AND ANXIETY. WITH JOO LATER TIME PATIENT REQUEST AND AFTER FEW HOURS REQUESTED MEDICATION TO HELP HIM SLEEP WITH NEEDED TRAZODONE, TO MONITOR. IV NS ADMINISTERED PER ORDER BY .
[2019-05-12] VITALS (28 sets, daily range): BP systolic 110–164; BP diastolic 50–91
--- NOTE | 2019-05-12 05:42 | NUR ---
MS/RN NOTES PATIENT REFUSED HYGIENE CARE.
[2019-05-12 07:17] LABS: BASOPHILS % (AUTO) 0.4 % (0.0-2.0); EOSINOPHILS % (AUTO) 2.3 % (0.0-6.0); HEMATOCRIT 39 % (39-51); HEMOGLOBIN 12.6 g/dL (13.5-17.5); LYMPHOCYTES # (AUTO) 1.8 /CMM (0.8-4.8); LYMPHOCYTES % (AUTO) 29.2 % (20.0-44.0); MEAN CORPUSCULAR HGB CONC 33 g/dl (31.0-36.0); MEAN CORPUSCULAR VOLUME 81 fL (80-96); MONOCYTES # (AUTO) 0.5 /CMM (0.1-1.30); MONOCYTES % (AUTO) 8.8 % (2.0-12.0); NEUTROPHILS # (AUTO) 3.6 /CMM (1.8-8.9); NEUTROPHILS % (AUTO) 59.3 % (43.0-81.0); PLATELET COUNT (AUTO) 230 /CMM (150-450); RED BLOOD CELL COUNT(AUTO) 4.76 MIL/uL (4.5-6.0)
[2019-05-12 07:25] LABS: ALBUMIN 2.9 g/dL (3.4-5.0); BILIRUBIN,TOTAL 0.3 mg/dL (0.2-1.0); CALCIUM, SERUM 8.4 mg/dL (8.5-10.1); CREATININE 0.9 mg/dL (0.6-1.3); MAGNESIUM 2.5 mg/dL (1.8-2.4); PHOSPHORUS 3.1 mg/dL (2.5-4.9); POTASSIUM 3.9 mmol/L (3.5-5.1); TOTAL PROTEIN, SERUM 6.2 g/dL (6.4-8.2)
[2019-05-12] MEDS: SOTALOL HCL 80 MG TABLET PO SCH ×3 (09:00→21:45)
[2019-05-12] MEDS: TOLTERODINE 2 MG TABLET PO SCH ×2 (09:00→21:46)
[2019-05-12] MEDS: BENAZEPRIL HCL 20 MG TABLET PO SCH (09:45)
[2019-05-12] MEDS: ASPIRIN 325 MG TABLET PO SCH (09:45)
[2019-05-12] MEDS: ATORVASTATIN 40 MG TABLET PO SCH (09:45)
[2019-05-12] MEDS: CYANOCOBALAMIN 500 MCG TABLET PO SCH (09:45)
[2019-05-12] MEDS: TAMSULOSIN 0.4 MG CAP.SR.24H PO SCH (09:45)
[2019-05-12] MEDS: NICOTINE PATCH (21MG) 21 MG PATCH.TD24 TD SCH (09:45)
[2019-05-12] MEDS: FINASTERIDE (5 MG) 5 MG TABLET PO SCH (09:45)
[2019-05-12] MEDS: FOLIC ACID 1 MG TABLET PO SCH (09:45)
[2019-05-12] MEDS: DOCUSATE SODIUM 100 MG CAPSULE PO SCH ×2 (09:55→17:48)
[2019-05-12] MEDS: LEVOTHYROXINE SODIUM 50 MCG TABLET PO SCH (09:55)
--- NOTE | 2019-05-12 09:55 | NUR ---
MS/RN non-admin A per pharmacy, [facility] not available.
[2019-05-12] MEDS ORDERED: IV NS 0.9% 1,000 ML ONE (10:19)
[2019-05-12] MEDS ORDERED: IODIXANOL 150 ML IV ONE ×3 (10:20→11:02)
[2019-05-12] MEDS ORDERED: FENTANYL PF 100MCG/2ML AMPUL ONE (10:21)
[2019-05-12] MEDS ORDERED: MIDAZOLAM HCL 2 MG/2ML VIAL ONE (10:21)
[2019-05-12] MEDS ORDERED: VERAPAMIL HCL IV 5 MG/2 ML VIAL ONE (10:21)
[2019-05-12] MEDS ORDERED: LIDOCAINE HCL/PF 1% 30 ML SDV ONE (10:21)
[2019-05-12] MEDS ORDERED: NITROGLYCERIN ICAR 1,000 MCG/10 ML VIAL ICAR ONE (10:22)
[2019-05-12] MEDS ORDERED: IV SET PRIMARY PUMP SET 1 EA INFUS.SET MC ONE (10:22)
[2019-05-12] MEDS ORDERED: HEPARIN SODIUM, PORCINE 1,000 UNIT/ML VIAL ONE (10:22)
--- NOTE | 2019-05-12 10:30 | NUR ---
MS/RN GAS DISTRIBUTION SUPERVISOR Patient left for cardiac cath
[2019-05-12] MEDS ORDERED: IODIXANOL IV ONE (11:00)
[2019-05-12] MEDS ORDERED: IODIXANOL 320MG/ML 50 ML IV ONE (11:32)
[2019-05-12] MEDS ORDERED: IV NS 0.9% 50 ML IV ONE (11:33)
[2019-05-12] MEDS ORDERED: CLOPIDOGREL BISULFATE 300 MG TABLET ONE (11:33)
--- NOTE | 2019-05-12 12:54 | NUR ---
ICU/RN S/P CURATOR HORTICULTURAL MUSEUM RECEIVED PT FROM CARDIAC CURATOR HORTICULTURAL MUSEUM. RECEIVED REPORT FROM CARMELINA POLLARD. PT TRANSFERRED TO ROOM 251 VIA BED. PT ALERT, AWAKE, FOLLOWS COMMANDS. ON ROOM AIR, NO DISTRESS. SINUS RED ON TELE. PT IS S/P PCI IN RCA. RIGHT WRIST TR BAND IN PLACE WITH 16 CC OF AIR. WILL START TO REMOVE AIR PER PROTOCOL AT 1430 PER MD. PIV PATENT AND INTACT, PT REFUSES SECOND IV TO BE PLACED, NS RUNNING AT 100 ML/HR FOR 5 HOURS. URINAL AT BEDSIDE. ALL NEEDS WILL BE ATTENDED TO, SAFETY MEASURES TAKEN, BED IN LOW POSITION, SIDE RAILS UP, CALL LIGHT WITHIN REACH. WILL CONTINUE CARE.
[2019-05-12] MEDS ORDERED: IV NS 0.9% 500 ML IV ONE (13:00)
--- NOTE | 2019-05-12 17:45 | NUR ---
ICU/RN TR BAND 1435-3ML AIR REMOVED, NO S/S OF BLEEDING NOTED 1455-3ML AIR REMOVED, NO S/S OF BLEEDING NOTED 1510-3ML AIR REMOVED, NO S/S OF BLEEDING NOTED 1610-3ML AIR REMOVED, NO S/S OF BLEEDING NOTED 1630-2ML AIR REMOVED, NO S/S OF BLEEDING NOTED 1645-2ML AIR REMOVED, NO S/S OF BLEEDING NOTED TOTAL OF 16CC AIR REMOVED 1700-TR BAND REMOVED, NO S/S OF BLEEDING NOTED, TRANSPARENT DRESSING APPLIED. PT INSTRUCTED AND REMINDED THE CARE AFTER. WILL CONTINUE TO MONITOR AND ASSESS
--- NOTE | 2019-05-12 18:15 | NUR ---
ICU/RN: PER PT REQUEST, PT TRANSFERRED TO BED SIDE COMMODE FOR BM. BED BATH GIVEN, LINENS CHANGED. PT HELPED BACK INTO BED.
--- NOTE | 2019-05-12 18:48 | NUR ---
ICU/RN: ENDING NOTES,AM BEDSIDE REPORT WILL BE ENDORSED TO NIGHT NURSE FOR CONTINUATION OF CARE. PT ALERT, AWAKE, ORIENTED. ON ROOM AIR, SINUS ON TELE. S/P CARDIAC CATHETERIZATION AND STENT PLACEMENT. PT SCHEDULED FOR REPEAT CARDIAC CATHETERIZATION IN AM FOR 2 MORE STENTS, CONSENTS IN CHART. ORDERS PLACED FOR PT TO BE NPO AFTER MIDNIGHT. URINAL AT BEDSIDE, PT RESTING COMFORTABLY. ALL NEEDS ATTENDED TO, SAFETY MEASURES TAKEN, BED IN LOW POSITION, SIDE RAILS UP, CALL LIGHT WITHIN REACH. WILL CONTINUE CARE.
--- NOTE | 2019-05-12 20:24 | NUR ---
FULL SERVICE VENDING DRIVER. INITIAL ASSESSMENT. RECEIVED THE PT REST ON THE BED, AWAKE, ALERT. FOLLOW COMMANDS. PRINTED CIRCUIT PHOTOGRAPHER SHOWING NSR, IV LT AC 20G SALINE LOCK. ROOM AIR. SAT 98%. NO ACUTE DISTRESS NOTED. AFEBRILE. HOB ELEVATED, LT SIDE WEAKNESS DUE TO OLD STROKE.
[2019-05-12] MEDS: SENNOSIDES 8.6 MG TABLET PO SCH (21:46)
--- NOTE | 2019-05-12 21:52 | NUR ---
LITHOGRAPHIC PLATE MAKER APPRENTICE BETAPACE NOT GIVEN, HEART RATE IS 48 -50
[2019-05-12] MEDS: clonazePAM 0.5 MG TABLET PO PRN (22:12)
[2019-05-12] MEDS: TRAZODONE 50 MG TABLET PO PRN (22:13)
[2019-05-13] VITALS (34 sets, daily range): BP systolic 86–169; BP diastolic 34–82
--- NOTE | 2019-05-13 01:08 | NUR ---
DENIER CONTROL OPERATOR. PT IS NPO
--- NOTE | 2019-05-13 03:21 | NUR ---
SUPERVISOR BELT AND LINK ASSEMBLY, AM CARE, ORAL CARE, BED BATH GIVEN. LINEN CHANGED PT ON ROOM AIE SAT 97%. LUMBER DRIVER SHOWING AT THE TIME S RED. PT IS NPO SINCE 0000. HOB ELEVATED. VITALS STABLE , PROCEDURE SITE NO BLEEDING OR HEMATOMA NOTED.WILL CONTINUE TO MONITOR VITALS.
[2019-05-13 04:56] LABS: BASOPHILS % (AUTO) 0.4 % (0.0-2.0); EOSINOPHILS % (AUTO) 2.4 % (0.0-6.0); HEMATOCRIT 39 % (39-51); HEMOGLOBIN 12.5 g/dL (13.5-17.5); LYMPHOCYTES # (AUTO) 1.6 /CMM (0.8-4.8); LYMPHOCYTES % (AUTO) 24.3 % (20.0-44.0); MEAN CORPUSCULAR HGB CONC 32 g/dl (31.0-36.0); MEAN CORPUSCULAR VOLUME 82 fL (80-96); MONOCYTES # (AUTO) 0.6 /CMM (0.1-1.30); NEUTROPHILS # (AUTO) 4.2 /CMM (1.8-8.9); NEUTROPHILS % (AUTO) 63.9 % (43.0-81.0); PLATELET COUNT (AUTO) 231 /CMM (150-450); RED BLOOD CELL COUNT(AUTO) 4.73 MIL/uL (4.5-6.0); WHITE BLOOD COUNT (AUTO) 6.5 K/uL (4.3-11.0)
[2019-05-13 05:01] LABS: CALCIUM, SERUM 8.3 mg/dL (8.5-10.1); POTASSIUM 3.7 mmol/L (3.5-5.1)
[2019-05-13] MEDS ORDERED: LIDOCAINE HCL/PF 1% 30 ML SDV ONE (06:06)
[2019-05-13] MEDS ORDERED: VERAPAMIL HCL IV 5 MG/2 ML VIAL ONE (06:06)
[2019-05-13] MEDS ORDERED: NITROGLYCERIN ICAR 1,000 MCG/10 ML VIAL ICAR ONE ×2 (06:06→07:23)
[2019-05-13] MEDS ORDERED: FENTANYL PF 100MCG/2ML AMPUL ONE (06:27)
[2019-05-13] MEDS ORDERED: MIDAZOLAM HCL 2 MG/2ML VIAL ONE (06:28)
[2019-05-13] MEDS ORDERED: IODIXANOL 320MG/ML 50 ML IV ONE (06:32)
[2019-05-13] MEDS ORDERED: IODIXANOL 150 ML IV ONE ×2 (06:52→08:04)
--- NOTE | 2019-05-13 07:02 | NUR ---
HEALTH CARE LEGAL ASSISTANT. PT WENT TO CLUBHOUSE MANAGER AT 0700.
[2019-05-13] MEDS ORDERED: IV NS 0.9% 1,000 ML ONE (07:04)
[2019-05-13] MEDS ORDERED: HEPARIN SODIUM, PORCINE 1,000 UNIT/ML VIAL ONE (07:30)
[2019-05-13] MEDS: LEVOTHYROXINE SODIUM 50 MCG TABLET PO SCH (07:30)
[2019-05-13] MEDS ORDERED: ASPIRIN 81 MG TAB.CHEW ONE (07:34)
[2019-05-13] MEDS ORDERED: CLOPIDOGREL BISULFATE 75 MG TABLET ONE (07:35)
[2019-05-13] MEDS: CLOPIDOGREL BISULFATE 75 MG TABLET PO SCH (09:00)
[2019-05-13] MEDS: SOTALOL HCL 80 MG TABLET PO SCH ×2 (09:00→20:41)
--- NOTE | 2019-05-13 10:00 | NUR ---
RN NOTE: PATIENT RECEIVED FROM CONSTRUCTION HELPER ALERT AWAKE ORIENTED X 3-4. ON ROOM AIR, NO BREATHING DISTRESS NOTED. VITAL SIGNS DOCUMENTED IN FLOW SHEET. SB 50S ON TELE MONITOR. S/P CARDIAC CATHETERIZATION PCI 1 STENT TO CX & 1 STENT TO LAD . TR BAND TO RIGHT WRIST WITH 17CC AIR INFLATION. SLIGHT DISCOLORATION TO RIGHT WRIST ABOVE THE TR BAND. NO S/S OF BLEEDING NOTED. DENIES NUMBNESS/TINGLING/+VE SENSATIONS/PERIPHERAL CAPILLARY REFILL TIME <3SEC. +VE PULSES TO PERIPHERAL PULSES. MAINTAINS BR, KEEP RIGHT UPPER EXTREMITY ELEVATED. CONTINUE TO MONITOR CLOSELY.
[2019-05-13] MEDS: NICOTINE PATCH (21MG) 21 MG PATCH.TD24 TD SCH (10:13)
[2019-05-13] MEDS: DOCUSATE SODIUM 100 MG CAPSULE PO SCH ×2 (11:00→17:00)
[2019-05-13] MEDS: CYANOCOBALAMIN 500 MCG TABLET PO SCH (11:17)
[2019-05-13] MEDS: BENAZEPRIL HCL 20 MG TABLET PO SCH (11:17)
[2019-05-13] MEDS: ATORVASTATIN 40 MG TABLET PO SCH (11:17)
[2019-05-13] MEDS: FOLIC ACID 1 MG TABLET PO SCH (11:17)
[2019-05-13] MEDS: FINASTERIDE (5 MG) 5 MG TABLET PO SCH (11:18)
[2019-05-13] MEDS: TAMSULOSIN 0.4 MG CAP.SR.24H PO SCH (11:18)
[2019-05-13] MEDS: TOLTERODINE 2 MG TABLET PO SCH ×2 (11:20→20:42)
--- NOTE | 2019-05-13 13:00 | NUR ---
RN NOTE: (REMOVAL OF TR BAND) 1045: 3CC AIR REMOVED FROM TR BAND; NO S/S OF BLEEDING, HEMATOMA NOTED. VITAL SIGNS SEE DATASCOPE FLOW SHEET. 1100: 3CC AIR REMOVED FROM TR BAND; NO S/S OF BLEEDING, HEMATOMA NOTED. VITAL SIGNS SEE DATASCOPE FLOW SHEET. 1115: 3CC AIR REMOVED FROM TR BAND; NO S/S OF BLEEDING, HEMATOMA NOTED. VITAL SIGNS SEE DATASCOPE FLOW SHEET. 1130: 3CC AIR REMOVED FROM TR BAND; NO S/S OF BLEEDING, HEMATOMA NOTED. VITAL SIGNS SEE DATASCOPE FLOW SHEET. 1145: 3CC AIR REMOVED FROM TR BAND; NO S/S OF BLEEDING, HEMATOMA NOTED. VITAL SIGNS SEE DATASCOPE FLOW SHEET. 1200: 2CC AIR REMOVED FROM TR BAND; NO S/S OF BLEEDING, HEMATOMA NOTED. VITAL SIGNS SEE DATASCOPE FLOW SHEET. AT 1230 TR BAND WAS REMOVED, APPLIED BAND AID TO SITE, +VE PERIPHERAL PULSES. PATIENT DENIES NUMBNESS, TINGLING SENSATION, NO BLEEDING NOTED. ABLE TO MOVE EXTREMITY WITH NO COMPLAINS. HOB ELEVATED. ABLE TO CONSUME 100% LUNCH, TOLERATING WELL. CONTINUE TO MONITOR CLOSELY. ENCOURAGE PATIENT TO USE CALL LIGHT FOR ASSISTANCE.
[2019-05-13] MEDS ORDERED: RIVAROXABAN 10 MG TABLET PO SCH (17:00)
--- NOTE | 2019-05-13 19:08 | NUR ---
RN NOTE: BEDSIDE REPORT GIVEN TO JEOVANY RN FOR CONTINUITY OF CARE.
--- NOTE | 2019-05-13 20:00 | NUR ---
GENERAL FARM MANAGER NOTES RECEIVED PATIENT IN BED ALERT AWAKE ORIENTED X 3-4.ABLE TO VERBALIZED NEEDS, NO C/O OF PAIN , ON ROOM AIR SATING 95%. NO BREATHING DISTRESS NOTED. VITAL SIGNS STABLE AFEBRILE. SR 65 ON TELE MONITOR. S/P CARDIAC CATHETERIZATION PCI 1 STENT TO CX & 1 STENT TO LAD . SLIGHT DISCOLORATION TO RIGHT WRIST NOTED. NO S/S OF BLEEDING NOTED. ALL NEEDS ATTENDED TOO , CALL LIGHT WITHIN REACH.KEPT PTS CLEAN DRY AND COMFORTABLE.
[2019-05-13] MEDS: TRAZODONE 50 MG TABLET PO PRN (20:43)
[2019-05-13] MEDS: clonazePAM 0.5 MG TABLET PO PRN (20:43)
--- NOTE | 2019-05-13 21:00 | NUR ---
FOUR CORNER FORMER MACHINE OPERATOR NOTES DUE MEDS GIVEN ORDERED NO ASE NOTED .
[2019-05-13] MEDS: SENNOSIDES 8.6 MG TABLET PO SCH (21:01)
[2019-05-14] VITALS (16 sets, daily range): BP systolic 89–140; BP diastolic 47–79
[2019-05-14 04:51] LABS: BASOPHILS % (AUTO) 0.3 % (0.0-2.0); EOSINOPHILS % (AUTO) 1.7 % (0.0-6.0); HEMATOCRIT 38 % (39-51); HEMOGLOBIN 12.5 g/dL (13.5-17.5); LYMPHOCYTES # (AUTO) 1.6 /CMM (0.8-4.8); LYMPHOCYTES % (AUTO) 21.9 % (20.0-44.0); MEAN CORPUSCULAR HGB CONC 33 g/dl (31.0-36.0); MEAN CORPUSCULAR VOLUME 81 fL (80-96); MONOCYTES # (AUTO) 0.7 /CMM (0.1-1.30); MONOCYTES % (AUTO) 9.4 % (2.0-12.0); NEUTROPHILS % (AUTO) 66.7 % (43.0-81.0); PLATELET COUNT (AUTO) 228 /CMM (150-450); RED BLOOD CELL COUNT(AUTO) 4.68 MIL/uL (4.5-6.0); WHITE BLOOD COUNT (AUTO) 7.5 K/uL (4.3-11.0)
[2019-05-14 05:16] LABS: CALCIUM, SERUM 8.6 mg/dL (8.5-10.1); POTASSIUM 3.6 mmol/L (3.5-5.1)
--- NOTE | 2019-05-14 07:10 | NUR ---
RN NOTES RECEIVED PT A/O, ON ROOM AIR. NO RESPIRATORY DISTRESS NOTED. NO SOB NOTED. DENIES ANY PAIN. IV LINE IN PLACE. FLUSHED. PT CONTINENT. COMFORTABLE. CALL LIGHT WITHIN REACH. POSSIBLE DC TODAY. WILL MONITOR
[2019-05-14] MEDS: TAMSULOSIN 0.4 MG CAP.SR.24H PO SCH (08:31)
[2019-05-14] MEDS: CYANOCOBALAMIN 500 MCG TABLET PO SCH (08:31)
[2019-05-14] MEDS: NICOTINE PATCH (21MG) 21 MG PATCH.TD24 TD SCH (08:31)
[2019-05-14] MEDS: ATORVASTATIN 40 MG TABLET PO SCH (08:31)
[2019-05-14] MEDS: TOLTERODINE 2 MG TABLET PO SCH (08:31)
[2019-05-14] MEDS: FOLIC ACID 1 MG TABLET PO SCH (08:31)
[2019-05-14] MEDS: LEVOTHYROXINE SODIUM 50 MCG TABLET PO SCH (08:31)
[2019-05-14] MEDS: DOCUSATE SODIUM 100 MG CAPSULE PO SCH (08:31)
[2019-05-14] MEDS: FINASTERIDE (5 MG) 5 MG TABLET PO SCH (08:31)
[2019-05-14] MEDS: CLOPIDOGREL BISULFATE 75 MG TABLET PO SCH (08:31)
[2019-05-14] MEDS: BENAZEPRIL HCL 20 MG TABLET PO SCH (09:00)
[2019-05-14] MEDS ORDERED: ASPIRIN 81 MG TAB.CHEW PO SCH (09:00)
[2019-05-14] MEDS: SOTALOL HCL 80 MG TABLET PO SCH (09:00)
[2019-05-14] MEDS ORDERED: ASPI-1169 PO (09:37)
[2019-05-14] MEDS ORDERED: SOTA80TA PO (09:37)
[2019-05-14] MEDS ORDERED: CLOP75TA15 PO (09:37)
[2019-05-14] MEDS ORDERED: RIVA10TA PO (09:37)
--- NOTE | 2019-05-14 10:00 | NUR ---
RN NOTES SEEN AND EXAMINED BY DR ORDOÑEZ. MD AWARE OF CURRENT LABS AND CXR RESULT. PT STABLE. NO SIGNIFICANT CHANGE OVERNIGHT. MD CLEARED PT TO DC HOME. PT AND AYANNA (SISTER) NOTIFIED.
--- NOTE | 2019-05-14 14:24 | NUR ---
RN NOTES PT LEFT VIA AMBULANCE TO HOME. PT A/O. ON ROOM AIR. NO RESPIRATORY DISTRESS NOTED. NO SOB NOTED. DENIES ANY PAIN. IV LINE REMOVED. PT CONTINENT. SKIN INTACT. LEFT IN STABLE CONDITION
== END 2019-05-14 15:36 | disposition home or self-care (01) | DRG 246 ==
LOC: ER 10:40 → ICU 14:24 → TELE 05-08 10:22 → MED 05-09 09:17 → ICU 05-12 11:38
PROVIDERS: ADMIT Internal Medicine; ATTEND Family Medicine
PROC: 0GBJ3ZX Excision of Thyroid Gland Isthmus, Percutaneous Approach, Diagnostic (ICD-10-PCS; 2019-05-10)
PROC: 4A023N7 Measurement of Cardiac Sampling and Pressure, Left Heart, Percutaneous Approach (ICD-10-PCS; principal; 2019-05-12)
PROC: B211YZZ Fluoroscopy of Multiple Coronary Arteries using Other Contrast (ICD-10-PCS; 2019-05-12)
PROC: 02703DZ Dilation of Coronary Artery, One Artery with Intraluminal Device, Percutaneous Approach (ICD-10-PCS; 2019-05-12)
PROC: 027135Z Dilation of Coronary Artery, Two Arteries with Two Drug-eluting Intraluminal Devices, Percutaneous Approach (ICD-10-PCS; 2019-05-13)
DX: I48.0 Paroxysmal atrial fibrillation (principal); I21.A1 Myocardial infarction type 2; E43 Unspecified severe protein-calorie malnutrition; I69.354 Hemiplegia and hemiparesis following cerebral infarction affecting left non-dominant side; I74.09 Other arterial embolism and thrombosis of abdominal aorta; I74.5 Embolism and thrombosis of iliac artery; E04.2 Nontoxic multinodular goiter; N40.0 Benign prostatic hyperplasia without lower urinary tract symptoms; E03.9 Hypothyroidism, unspecified; Z87.891 Personal history of nicotine dependence; I71.4 Abdominal aortic aneurysm, without rupture; I73.9 Peripheral vascular disease, unspecified; K57.30 Diverticulosis of large intestine without perforation or abscess without bleeding; E88.09 Other disorders of plasma-protein metabolism, not elsewhere classified; M62.50 Muscle wasting and atrophy, not elsewhere classified, unspecified site; Z68.26 Body mass index [BMI] 26.0-26.9, adult; I70.8 Atherosclerosis of other arteries; I25.10 Atherosclerotic heart disease of native coronary artery without angina pectoris; J44.9 Chronic obstructive pulmonary disease, unspecified; E04.9 Nontoxic goiter, unspecified
CPT/HCPCS: 10021; 36415; 71045-TC; 75574; 76536-TC; 80048-TC; 80053-TC; 80061-TC; 80076-TC; 82378; 82728-TC; 83540-TC; 83690-TC; 83735-TC; 84100-TC; 84155; 84165; 84439-TC; 84443-TC; 84484-TC; 85025-TC; 85730-TC; 86800; 87081-TC; 88173-TC; 88305-TC; 92980; 92981; 92982; 93307-TC; 93452; A4216; C1725; C1751; C1887; G0378; J1644; J1650; J2060; J2250; J3010; J3490; J7030; J7040; J7050; J7060; Q9967

== ENCOUNTER 2019-11-03 11:23 | Outpatient (CLI) | payer MEDICARE, OTHER ==
[~2019-11-03 11:23] MED LIST: ASPI-1169 PO; BENA40TA8 PO; CLON0.5T4 PO; CLOP75TA15 PO; CYAN100096 PO; DOCU-141 PO; FESO4TAB PO; FINA5TAB11 PO; FOLI0.8T PO; LEVO50TA8 PO; LINA145C PO; MELA3TAB41 PO; MIRT30TA7 PO; PRAV40TA3 PO; RIVA10TA PO; SENN-261 PO; SOTA80TA PO; TAMS-12 PO; TRAZ-182 PO
[2019-11-03 12:47] LABS: BASOPHILS # (AUTO) 0.1 /CMM (0.0-0.2); BASOPHILS % (AUTO) 0.9 % (0.0-2.0); EOSINOPHILS % (AUTO) 7.6 % (0.0-6.0); HEMATOCRIT 41 % (39-51); HEMOGLOBIN 13.2 g/dL (13.5-17.5); LYMPHOCYTES # (AUTO) 2.6 /CMM (0.8-4.8); LYMPHOCYTES % (AUTO) 35.5 % (20.0-44.0); MEAN CORPUSCULAR HGB CONC 32 g/dl (31.0-36.0); MEAN CORPUSCULAR VOLUME 76 fL (80-96); MONOCYTES # (AUTO) 0.5 /CMM (0.1-1.30); MONOCYTES % (AUTO) 7.2 % (2.0-12.0); NEUTROPHILS # (AUTO) 3.6 /CMM (1.8-8.9); NEUTROPHILS % (AUTO) 48.8 % (43.0-81.0); PLATELET COUNT (AUTO) 239 /CMM (150-450); RED BLOOD CELL COUNT(AUTO) 5.44 MIL/uL (4.5-6.0); WHITE BLOOD COUNT (AUTO) 7.3 K/uL (4.3-11.0)
[2019-11-03 13:03] LABS: ALBUMIN 3.7 g/dL (3.4-5.0); BILIRUBIN,TOTAL 0.2 mg/dL (0.2-1.0); CALCIUM, SERUM 9.2 mg/dL (8.5-10.1); CREATININE 1.1 mg/dL (0.6-1.3); MAGNESIUM 2.5 mg/dL (1.8-2.4); POTASSIUM 3.9 mmol/L (3.5-5.1); TOTAL PROTEIN, SERUM 7.9 g/dL (6.4-8.2)
[2019-11-03 13:08] LABS: THYROID STIMULATING HORMONE 1.006 uIU/mL (0.358-3.74)
== END 2019-11-03 23:59 | disposition home or self-care (01) ==
LOC: LAB 11:23
PROVIDERS: ATTEND Internal Medicine Interventional Cardiology
DX: I10 Essential (primary) hypertension (principal); I25.10 Atherosclerotic heart disease of native coronary artery without angina pectoris; E78.5 Hyperlipidemia, unspecified; R53.83 Other fatigue
CPT/HCPCS: 36415; 80053-TC; 80061-TC; 83735-TC; 84439-TC; 84443-TC; 85025-TC; 85652-TC

== ENCOUNTER 2020-02-02 08:25 | Outpatient (CLI) | payer MEDICARE, OTHER ==
[2020-02-02 09:23] LABS: CHOLESTEROL 149 mg/dL (<200); HDL CHOLESTEROL 43 mg/dL (40-60); LDL 87 mg/dL (0-99); TRIGLYCERIDES 161 mg/dL (30-150)
== END 2020-02-02 23:59 | disposition home or self-care (01) ==
LOC: LAB 08:25
PROVIDERS: ATTEND Internal Medicine Interventional Cardiology
DX: E78.5 Hyperlipidemia, unspecified (principal)
CPT/HCPCS: 36415; 80061-TC

== ENCOUNTER 2022-04-13 10:57 | Emergency (ER) | payer MEDICARE, OTHER ==
[~2022-04-13] VITALS: Ht 175.3 cm; Wt 85.7 kg
[~2022-04-13 10:57] MED LIST changes: -FOLI0.8T PO; +FOLI0.8T3 PO; +MIRT-91 PO; -MIRT30TA7 PO
--- NOTE | 2022-04-13 11:17 | NUR ---
BIBS C/O SPONTANEOUS EPISTAXIS X 4 HRS. VITALS ARE WITHIN NORMAL LIMITS. AWAITING MD ORDERS.
[2022-04-13 12:17] LABS: BASOPHILS # (AUTO) 0.1 K/uL (0.0-0.2); EOSINOPHILS % (AUTO) 2.8 % (0.0-6.0); HEMATOCRIT 27 % (39-51); LYMPHOCYTES # (AUTO) 1.8 K/uL (0.8-4.8); LYMPHOCYTES % (AUTO) 22.9 % (20.0-44.0); MEAN CORPUSCULAR HGB CONC 30 g/dl (31.0-36.0); MEAN CORPUSCULAR VOLUME 59 fL (80-96); MONOCYTES # (AUTO) 0.5 K/uL (0.1-1.30); MONOCYTES % (AUTO) 6.9 % (2.0-12.0); NEUTROPHILS # (AUTO) 5.2 K/uL (1.8-8.9); NEUTROPHILS % (AUTO) 66.4 % (43.0-81.0); PLATELET COUNT (AUTO) 219 K/uL (150-450); RED BLOOD CELL COUNT(AUTO) 4.56 MIL/uL (4.5-6.0); WHITE BLOOD COUNT (AUTO) 7.8 K/uL (4.3-11.0)
[2022-04-13 12:38] LABS: CALCIUM, SERUM 8.8 mg/dL (8.5-10.1); POTASSIUM 4.4 mmol/L (3.5-5.1)
[2022-04-13 13:11] LABS: EOSINOPHILS % (MANUAL) 2 % (0-4); LYMPHOCYTES % (MANUAL) 16 % (16-48); MONOCYTES % (MANUAL) 3 % (0-11.0); NEUTROPHILS % (MANUAL) 79 (42-76)
--- NOTE | 2022-04-13 13:19 | NUR ---
DR FIELD AT BEDSIDE
[2022-04-13 14:21] VITALS: BP 124/70
--- NOTE | 2022-04-13 14:21 | NUR ---
Patient discharged to home in stable condition accompanied by caregiver. Written and verbal after care instructions given. Patient verbalizes understanding of instruction.
== END 2022-04-13 14:24 | disposition home or self-care (01) ==
LOC: ER 11:10
DX: R04.0 Epistaxis (principal); D50.9 Iron deficiency anemia, unspecified; I10 Essential (primary) hypertension; E78.5 Hyperlipidemia, unspecified; E03.9 Hypothyroidism, unspecified; Z79.899 Other long term (current) drug therapy
CPT/HCPCS: 99284; 30901; 85025; 80048; 36415; 85730; 86850; 85007; A6403; A4217

== ENCOUNTER 2022-04-15 08:31 | Emergency (ER) | payer MEDICARE, OTHER ==
[~2022-04-15] VITALS: Ht 175.3 cm; Wt 85.7 kg
[2022-04-15 08:31] VITALS: BP 141/96
== END 2022-04-15 09:12 | disposition home or self-care (01) ==
LOC: ER 08:36
DX: R04.0 Epistaxis (principal); I10 Essential (primary) hypertension; E78.5 Hyperlipidemia, unspecified; E03.9 Hypothyroidism, unspecified; Z79.899 Other long term (current) drug therapy

== ENCOUNTER 2022-04-25 08:47 | Inpatient (IN) | payer MEDICARE, OTHER ==
[~2022-04-25] VITALS: Ht 175.3 cm; Wt 81.6 kg
--- NOTE | 2022-04-25 09:16 | NUR ---
ASSUME PT CARE, BIB CAREGIVER AFTER SHE WAS ADVISED BY FAMILY TO GO TO ED AND HAVE LAB WORK DONE TO CHECK. PT ENDORSES NOSE BLEEDING LAST FRIDAY AND WAS DIZZY AT THE SAME TIME. 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 GOWNED AND PLACED ON MONITOR. VSS. AWAITING MD RICH.
--- NOTE | 2022-04-25 09:18 | NUR ---
DR SADLER AT BEDSIDE FOR EVAL.
--- NOTE | 2022-04-25 09:28 | NUR ---
IV LINE STARTED BLOOD DRAWN AND SENT TO LAB.
[2022-04-25 09:43] LABS: BASOPHILS # (AUTO) 0.1 K/uL (0.0-0.2); BASOPHILS % (AUTO) 0.6 % (0.0-2.0); EOSINOPHILS % (AUTO) 1.3 % (0.0-6.0); HEMATOCRIT 21 % (39-51); LYMPHOCYTES # (AUTO) 1.8 K/uL (0.8-4.8); LYMPHOCYTES % (AUTO) 20.7 % (20.0-44.0); MEAN CORPUSCULAR HGB CONC 28 g/dl (31.0-36.0); MEAN CORPUSCULAR VOLUME 62 fL (80-96); MONOCYTES # (AUTO) 0.6 K/uL (0.1-1.30); MONOCYTES % (AUTO) 7.1 % (2.0-12.0); NEUTROPHILS # (AUTO) 6.1 K/uL (1.8-8.9); NEUTROPHILS % (AUTO) 70.3 % (43.0-81.0); PLATELET COUNT (AUTO) 446 K/uL (150-450); RED BLOOD CELL COUNT(AUTO) 3.42 MIL/uL (4.5-6.0); WHITE BLOOD COUNT (AUTO) 8.6 K/uL (4.3-11.0)
[2022-04-25 09:51] LABS: CALCIUM, SERUM 8.7 mg/dL (8.5-10.1); POTASSIUM 4.3 mmol/L (3.5-5.1)
[2022-04-25 09:57] LABS: ALBUMIN 3.4 g/dL (3.4-5.0); BILIRUBIN,DIRECT 0.1 mg/dL (0.0-0.2); BILIRUBIN,TOTAL 0.3 mg/dL (0.2-1.0); TOTAL PROTEIN, SERUM 7.2 g/dL (6.4-8.2)
--- NOTE | 2022-04-25 10:25 | NUR ---
MOVE SHEET SUBMITTED.
--- NOTE | 2022-04-25 11:00 | NUR ---
COVID SWAB DONE AND SENT TO LAB
--- NOTE | 2022-04-25 11:30 | NUR ---
BLOOD TRANSFUSION INITIATED.
--- NOTE | 2022-04-25 11:32 | NUR ---
[facility] CAREGIVER LEFT CONTACT # [phone]
--- NOTE | 2022-04-25 12:00 | NUR ---
CALLED [facility] SH[facility] ANA
--- NOTE | 2022-04-25 13:05 | NUR ---
REPORT GIVEN TO DELIA COSME. AWAITING TRANSFER TO FLOOR.
--- NOTE | 2022-04-25 13:22 | NUR ---
TRANSPORTED TO M/S FLOOR. STABLE CONDITION.
[2022-04-25 13:30] VITALS: BP 140/59
--- NOTE | 2022-04-25 13:30 | NUR ---
ACID PUMP OPERATORINTERNAL CONTROLS SPECIALIST NOTES: RECEIVED REPORT FROM RACHEL BY PHONE. RECEIVED PT VIA GURNEY FROM ER STAFF, TRANSFERRED TO BED BY 2 STAFF. PT IS AWAKE, A/O X4. NO S/S OF SOB ON RA, NO ACUTE DISTRESS NOTED, DENIES PAIN AT THIS TIME. VITALS WNL - BP- 140/59, HR- 76, TEMP- 98.0, RR- 18. IV ACCESS AT R AC# 20, RUNNING 1 UNIT PRBC @ 100ML/HR. NO S/S OF TRANSFUSION REACTION NOTED AT THIS TIME. TELE MONITOR READS SR c PVCS, HR- 81. SKIN IS INTACT. ORIENTED TO STAFF AND UNIT. PT'S WHEELCHAIR AT BEDSIDE, BELONGINGS CHECKLIST SIGNED. SAFETY MEASURES IN PLACE, CALL LIGHT, TABLE AND URINAL WITHIN REACH. ENCOURAGE PT TO USE CALL LIGHT FOR ANY HELP, PT VERBALIZED UNDERSTANDING; WILL CONT WITH PLAN OF CARE DURING SHIFT.
[2022-04-25 14:00] VITALS: BP 131/58
[2022-04-25] MEDS ORDERED: Z GUARD REMEDY 4 OZ OINT TP PRN (14:30)
[2022-04-25] MEDS ORDERED: ONDANSETRON HCL/PF 4 MG/2 ML VIAL IVP PRN (14:30)
[2022-04-25] MEDS ORDERED: ACETAMINOPHEN 325 MG TABLET PO PRN (14:30)
[2022-04-25] MEDS ORDERED: TRAZODONE 50 MG TABLET PO PRN (14:30)
[2022-04-25 15:46] LABS: BASOPHILS % (MANUAL) 1 % (0.0-2.0); EOSINOPHILS % (MANUAL) 1 % (0-4); LYMPHOCYTES % (MANUAL) 20 % (16-48); MONOCYTES % (MANUAL) 8 % (0-11.0); NEUTROPHILS % (MANUAL) 70 (42-76)
[2022-04-25] MEDS: DOCUSATE SODIUM 100 MG CAPSULE PO SCH (16:28)
[2022-04-25] MEDS: PANTOPRAZOLE 40 MG VIAL IV SCH (16:28)
[2022-04-25 16:33] VITALS: BP 122/56
[2022-04-25] MEDS: IV NS 0.9% 1,000 ML IV PRN (16:40)
[2022-04-25] MEDS: MIRTAZAPINE 15 MG TABLET PO SCH (17:16)
[2022-04-25] MEDS: NICOTINE PATCH (21MG) 21 MG PATCH.TD24 TD SCH (18:57)
--- NOTE | 2022-04-25 19:19 | NUR ---
[facility] CLOSING NOTES: PT IS AWAKE, A/O X4. NO S/S OF SOB ON RA, NO ACUTE DISTRESS NOTED, DENIES PAIN AT THIS TIME. IV ACCESS AT R AC# 20, S/P 1 UNIT PRBC TRANSFUSION. NO S/S OF TRANSFUSION REACTION. TELE MONITOR READS SR c PVCS, HR- 78. DUE MEDS GIVEN, MADE PT CLEAN, DRY AND COMFORTABLE. PT'S WHEELCHAIR AT BEDSIDE SAFETY MEASURES IN PLACE, CALL LIGHT, TABLE AND URINAL WITHIN REACH. ENCOURAGE PT TO USE CALL LIGHT FOR ANY HELP, PT VERBALIZED UNDERSTANDING; ENDORSED TO PM SHIFT.
--- NOTE | 2022-04-25 19:47 | NUR ---
SALES PROFESSIONAL BILINGUAL OPENING NOTES: RECEIVED PATIENT AWAKE IN BED, BED IN LOW POSITION, CALL LIGHTS WITHIN REACH, NO COMPLAIN OF PAIN AND DISCOMFORT AT THIS TIME, ON ROOM AIR SATURATING WELL, ON TELE [id number], WITH IV LINE AT RAC#18 WITH ONGOING NSS@75ML/HR INFUSING WELL, PATIENT IS S/P BT TO HOLD ANTI COAGULANT FOR NOW, PATIENT KEPT CLEAN AND DRY ALL NEEDS MET WILL CONTINUE TO MONITOR.
[2022-04-25 20:00] VITALS: BP 110/50
[2022-04-25 20:40] VITALS: BP 110/50
[2022-04-25] MEDS: SENNOSIDES 8.6 MG TABLET PO SCH (21:34)
[2022-04-25] MEDS: ATORVASTATIN 10 MG TABLET PO SCH (21:34)
[2022-04-25] MEDS: TRAZODONE 50 MG TABLET PO PRN (21:36)
[2022-04-25 21:55] VITALS: BP 102/54
[2022-04-25] MEDS ORDERED: Medication Not On Formulary EA (Melatonin 3 MG) PO SCH (22:00)
[2022-04-25] MEDS ORDERED: clonazePAM 0.5 MG TABLET PO PRN (22:00)
[2022-04-26] VITALS (8 sets, daily range): BP systolic 108–132; BP diastolic 48–68
[2022-04-26] MEDS: IV NS 0.9% 1,000 ML IV PRN (06:36)
--- NOTE | 2022-04-26 06:46 | NUR ---
PATROL COMMANDER CLOSING NOTES: PATIENT WAS AWAKE IN BED, VERBALLY RESPONSIVE, NO COMPLAIN OF PAIN AND DISCOMFORT AT THIS TIME, ON ROOM AIR SATURATING WELL, ON TELE [id number], S/P BLOOD TRANSFUSION OF 1 PACK RBC NO BLEEDING WAS OBSERVED DURING THE SHIFT, PATIENT ON IV LINE OF 0.9NSS@75ML/HR INFUSING WELL, PATIENT KEPT CLEAN AND DRY ALL NEEDS MET ENDORSE TO INCOMING SHIFT.
[2022-04-26 06:53] LABS: BASOPHILS % (AUTO) 0.6 % (0.0-2.0); EOSINOPHILS % (AUTO) 1.2 % (0.0-6.0); HEMATOCRIT 22 % (39-51); LYMPHOCYTES # (AUTO) 1.5 K/uL (0.8-4.8); LYMPHOCYTES % (AUTO) 25.3 % (20.0-44.0); MEAN CORPUSCULAR HGB CONC 30 g/dl (31.0-36.0); MEAN CORPUSCULAR VOLUME 64 fL (80-96); MONOCYTES # (AUTO) 0.5 K/uL (0.1-1.30); MONOCYTES % (AUTO) 8.1 % (2.0-12.0); NEUTROPHILS # (AUTO) 3.8 K/uL (1.8-8.9); NEUTROPHILS % (AUTO) 64.8 % (43.0-81.0); PLATELET COUNT (AUTO) 341 K/uL (150-450); RED BLOOD CELL COUNT(AUTO) 3.39 MIL/uL (4.5-6.0); WHITE BLOOD COUNT (AUTO) 5.9 K/uL (4.3-11.0)
[2022-04-26] MEDS: LEVOTHYROXINE SODIUM 50 MCG TABLET PO SCH (06:58)
[2022-04-26 06:59] LABS: HEMOGLOBIN 6.5 g/dL (13.5-17.5)
--- NOTE | 2022-04-26 07:28 | NUR ---
INTEGRATION PROJECT MANAGER OPENING NOTES: RECEIVED PATIENT AWAKE IN BED IN NO ACUTE SIGN SOF DISTRESS. A/O X4. ABLE TO MAKE NEEDS KNOWN, DENIES PAIN OR ANY DISCOMFORTS AT THIS TIME. ON ROOM, TOLERATING WELL, BREATHING EVEN AND UNLABORED. ON TELE-MONITOR WITH CURRENT READING OF NSR-HR 68, NO C/O CARDIAC DISTRESS VOICED AT THIS TIME. IV ACCESS ON RAC#20 INTACT WITH IVF OF NS @ 75ML/HR INFUSING WELL, NO S/S OF INFILTRATION AT SITE NOTED. SAFETY MEASURES IN PLACE: BED IN LOWEST LOCKED POSITION WITH SR UP X2. CALL LIGHT AND TRAY TABLE W/I EASY REACH OF PT. WILL CONTINUE TO MONITOR PT ACCORDINGLY.
[2022-04-26 07:32] LABS: BILIRUBIN,TOTAL 0.5 mg/dL (0.2-1.0); CALCIUM, SERUM 8.5 mg/dL (8.5-10.1); CREATININE 0.9 mg/dL (0.6-1.3); MAGNESIUM 2.5 mg/dL (1.8-2.4); TOTAL PROTEIN, SERUM 6.3 g/dL (6.4-8.2)
--- NOTE | 2022-04-26 07:55 | NUR ---
RN NOTES: RECEIVED A CRITICAL LAB OF HGB AT 6.5 PREVIOUS WAS 6.0 PATIENT WAS S/P BLOOD TRANSFUSION OF [address] OLIVER AT 0700 NO RESPONSE ENDORSE TO CARMELINA MURILLO FOR FOLLOW UP CN WAS MADE AWARE,
--- NOTE | 2022-04-26 08:22 | NUR ---
RN NOTES RECEIVED REPORT FROM ELECTRICAL TECHNICIAN INSTRUCTOR RN BHARATI THAT PT'S HGB 6.[address] DASH DOING HIS ROUND AND INFORMED HIM OF CRITICAL RESULT WITH ORDER TO INFUSE PRBC X1.
[2022-04-26] MEDS: NICOTINE PATCH (21MG) 21 MG PATCH.TD24 TD SCH (08:43)
[2022-04-26] MEDS: DOCUSATE SODIUM 100 MG CAPSULE PO SCH ×2 (08:43→16:15)
[2022-04-26] MEDS: FINASTERIDE (5 MG) 5 MG TABLET PO SCH (08:43)
[2022-04-26] MEDS: TAMSULOSIN 0.4 MG CAP.SR.24H PO SCH (08:44)
[2022-04-26] MEDS: LISINOPRIL (20MG) 20 MG TABLET PO SCH (08:44)
[2022-04-26] MEDS: FOLIC ACID 1 MG TABLET PO SCH (08:44)
[2022-04-26] MEDS: CYANOCOBALAMIN 500 MCG TABLET PO SCH (08:44)
[2022-04-26] MEDS ORDERED: Medication Not On Formulary EA (Fesoterodine Fumarate (Toviaz) 4 MG) PO SCH (09:00)
[2022-04-26] MEDS ORDERED: Medication Not On Formulary EA (Linaclotide (Linzess) 145 MCG) PO SCH (09:00)
--- NOTE | 2022-04-26 11:18 | NUR ---
RN NOTES PT STARTED ON PRBC X1 UNIT TO RAC G#20 AT 1117. PRE- BLOOD TRANSFUSION V/S TAKEN AND RECORDED. WILL MONITOR FOR ANY ALLERGIC OR ADVERSE REACTIONS.
--- NOTE | 2022-04-26 11:33 | NUR ---
RN NOTES NO ALLERGIC OR ADVERSE REACTIONS NOTED AFTER 15MINUTES OF STARTING BLOOD TRANSFUSION. WILL CONTINUE TO MONITOR..
[2022-04-26 13:55] LABS: BAND % (MANUAL) 2 % (0.0-5.0); EOSINOPHILS % (MANUAL) 1 % (0-4); LYMPHOCYTES % (MANUAL) 26 % (16-48); MONOCYTES % (MANUAL) 3 % (0-11.0); NEUTROPHILS % (MANUAL) 66 (42-76)
[2022-04-26 13:56] LABS: METAMYELOCYTES % 2 % (0-0)
--- NOTE | 2022-04-26 14:24 | NUR ---
RN NOTES PATIENT JUST COMPLETED BLOOD TRANSFUSION OF PRBC X1 UNIT (292 ML) VIA IV ACCESS ON RAC G#20. PT TOLERATED BLOOD TRANSFUSION WELL WITH NO ALLERGIC OR ADVERSE REACTIONS NOTED.
[2022-04-26] MEDS: PANTOPRAZOLE 40 MG VIAL IV SCH (15:30)
--- NOTE | 2022-04-26 17:49 | NUR ---
RN NOTES PATIENT VERBALIZED THAT HE DOESN'T WANT EGD TO BE DONE TOMORROW DESPITE EXPLAINING THE IMPORTANCE OF HAVING IT DONE. CALLED DR DASH AND MADE AWARE WITH ORDER TO LET A [facility] SPEAKING STAFF TO TALK TO PT. RN PHILIPPE ON UNIT SPOKED TO PT IN [facility] REGARDING IMPORTANCE OF EGD TO PT'S CURRENT MEDICAL STATUS, PT VERBALIZED UNDERSTANDING BUT STILL REFUSED IT TO BE DONE. O.R. RUSSEL STATED THAT IF PT REFUSE THE PROCEDURE THEN IT WILL BE CANCELLED. CHARGE NURSE IS NOAH GAMBLE.
[2022-04-26] MEDS: MIRTAZAPINE 15 MG TABLET PO SCH (18:07)
--- NOTE | 2022-04-26 18:40 | NUR ---
BURLAP SPREADER CLOSING NOTES: PATIENT IN BED WATCHING T.V. AT THIS TIME. A/O X4. ABLE TO MAKE NEEDS KNOWN. ON ROOM AIR, TOLERATING WELL, BREATHING EVEN AND UNLABORED. ON TELE-MONITOR WITH CURRENT READING OF NSR, HR 85 AT THIS TIME, NO C/O CARDIAC DISTRESS VOICED DURING THE DAY. IV ACCESS ON RAC#20 INTACT WITH IVF OF NS @ 75ML/HR INFUSING WELL, NO S/S OF INFILTRATION AT SITE NOTED. ALL NEEDS AND CARE ATTENDED WELL. SAFETY MEASURES IN PLACE: BED IN LOWEST LOCKED POSITION WITH SR UP X2. CALL LIGHT AND TRAY TABLE W/I EASY REACH OF PT. WILL ENDORSE MOISE TO HEALTH SERVICES DIRECTOR NURSE.
--- NOTE | 2022-04-26 20:00 | NUR ---
LABEL TACKER OPENING NOTES: RECEIVED PATIENT IN BED AAOX4,ABLE TO MAKE NEEDS KNOWN,DALIA WELL ON RM AIR,NO SIGN SOB/DISTRESS NOTED,NO COMPLAIN OF PAIN AND DISCOMFORT AT THIS TIME,ON TELE [id number], WITH IV LINE AT RAC#18 WITH ONGOING NSS@75ML/HR INFUSING WELL,SAFETY MEASURE IN PLACE,WILL CONTINUE TO MONITOR.
[2022-04-26] MEDS: ATORVASTATIN 10 MG TABLET PO SCH (21:42)
[2022-04-26] MEDS: SENNOSIDES 8.6 MG TABLET PO SCH (21:42)
[2022-04-26] MEDS: TRAZODONE 50 MG TABLET PO PRN (22:55)
--- NOTE | 2022-04-27 06:36 | NUR ---
MS RN CLOSING NOTE; PATIENT IN BED SLEEPING BUT EASY TO AROUSED,, A/O X 4, ABLE TO MAKE NEEDS KNOWN, TOLERATING WELL ON ROOM AIR WITH NO SIGN SOB/RESPIRATORY DISTRESS NOTED,NO COMPLAINE OF PAIN/DISCOMFORT DURING SHIFT,DUE MEDS GIVEN ORDER,ALL NEEDS ATTENDED,IV ACCESS ON L AC # 20 SL INTACT AND FLUSHING WELL. SAFETY MEASURES IN PLACE: BED IN LOWEST LOCKED POSITION, SIDE RAILS UP X 2, CALL LIGHT WITHIN REACH. WILL ENDORSED TO NEXT SHIFT.
[2022-04-27 07:29] LABS: BASOPHILS % (AUTO) 0.3 % (0.0-2.0); EOSINOPHILS % (AUTO) 1.8 % (0.0-6.0); HEMATOCRIT 23 % (39-51); LYMPHOCYTES # (AUTO) 1.6 K/uL (0.8-4.8); LYMPHOCYTES % (AUTO) 24.1 % (20.0-44.0); MEAN CORPUSCULAR HGB CONC 30 g/dl (31.0-36.0); MEAN CORPUSCULAR VOLUME 65 fL (80-96); MONOCYTES # (AUTO) 0.6 K/uL (0.1-1.30); NEUTROPHILS # (AUTO) 4.2 K/uL (1.8-8.9); NEUTROPHILS % (AUTO) 64.8 % (43.0-81.0); PLATELET COUNT (AUTO) 332 K/uL (150-450); RED BLOOD CELL COUNT(AUTO) 3.54 MIL/uL (4.5-6.0); WHITE BLOOD COUNT (AUTO) 6.5 K/uL (4.3-11.0)
[2022-04-27 08:00] VITALS: BP 120/70
[2022-04-27] MEDS: LEVOTHYROXINE SODIUM 50 MCG TABLET PO SCH (08:15)
[2022-04-27] MEDS: TAMSULOSIN 0.4 MG CAP.SR.24H PO SCH (08:57)
[2022-04-27] MEDS: FOLIC ACID 1 MG TABLET PO SCH (08:57)
[2022-04-27] MEDS: DOCUSATE SODIUM 100 MG CAPSULE PO SCH (08:57)
[2022-04-27] MEDS: NICOTINE PATCH (21MG) 21 MG PATCH.TD24 TD SCH (08:57)
[2022-04-27] MEDS: FINASTERIDE (5 MG) 5 MG TABLET PO SCH (08:57)
[2022-04-27] MEDS: CYANOCOBALAMIN 500 MCG TABLET PO SCH (08:58)
[2022-04-27] MEDS: LISINOPRIL (20MG) 20 MG TABLET PO SCH (08:58)
[2022-04-27 11:30] VITALS: BP 124/63
[2022-04-27 12:00] VITALS: BP 124/63
[2022-04-27 12:15] VITALS: BP 130/74
[2022-04-27 13:12] LABS: BAND % (MANUAL) 1 % (0.0-5.0); EOSINOPHILS % (MANUAL) 2 % (0-4); LYMPHOCYTES % (MANUAL) 27 % (16-48); MONOCYTES % (MANUAL) 4 % (0-11.0); NEUTROPHILS % (MANUAL) 66 (42-76)
[2022-04-27 13:45] VITALS: BP 128/62
[2022-04-27] MEDS: PANTOPRAZOLE 40 MG VIAL IV SCH (14:31)
--- NOTE | 2022-04-27 14:59 | NUR ---
patient discharged home at this time via wheelchair in the company of industry segment specialist. instructions given;both verbalized understanding.
== END 2022-04-27 15:00 | disposition home or self-care (01) | DRG 378 ==
LOC: ER 08:59 → MED 12:58 → TELE 04-26
PROVIDERS: ADMIT Internal Medicine; ATTEND Internal Medicine
PROC: 30233N1 Transfusion of Nonautologous Red Blood Cells into Peripheral Vein, Percutaneous Approach (ICD-10-PCS; principal; 2022-04-25)
DX: K92.2 Gastrointestinal hemorrhage, unspecified (principal); D62 Acute posthemorrhagic anemia; I69.354 Hemiplegia and hemiparesis following cerebral infarction affecting left non-dominant side; I10 Essential (primary) hypertension; E78.5 Hyperlipidemia, unspecified; I25.10 Atherosclerotic heart disease of native coronary artery without angina pectoris; Z20.822 Contact with and (suspected) exposure to COVID-19
CPT/HCPCS: 36415; 80048-TC; 80053-TC; 80076-TC; 83735-TC; 84100-TC; 85025-TC; 85730-TC; 86850-TC; 87081-TC; C9113; C9803; G0378; J7030; J7050; P9016